=== PATIENT | female | born 1990 | race Caucasian/White ===

== ENCOUNTER → 2017-12-13 17:09 | Outpatient (CLI) | payer OTHER, SELFPAY | PROVIDERS: Family Provider Specialist; PCP Specialist; Visit Provider Specialist | DX: Z34.02 Encounter for supervision of normal first pregnancy, second trimester (principal); Z3A.25 25 weeks gestation of pregnancy ==

== ENCOUNTER → 2017-12-14 15:49 | Outpatient (CLI) | payer OTHER, SELFPAY ==
[2017-12-14 18:13] LABS: Hematocrit 31.7 % (36-46); Hemoglobin 10.5 g/dL (12.0-16.0)
[2017-12-14 19:05] LABS: GTT (PREG) 1 Hour PP 50gm Dose 135 mg/dL (76-139)
== END ==
PROVIDERS: Family Provider Specialist; PCP Specialist; Visit Provider Specialist
DX: Z3A.25 25 weeks gestation of pregnancy (principal); Z34.02 Encounter for supervision of normal first pregnancy, second trimester
CPT/HCPCS: 36415; 82950; 85014; 85018

== ENCOUNTER → 2018-02-19 16:40 | Outpatient (CLI) | payer OTHER, SELFPAY ==
[2018-02-20 11:44] LABS: Strep Grp B PCR POS for Grp B Strep
== END ==
PROVIDERS: Family Provider Specialist; PCP Specialist; Visit Provider Obstetrics & Gynecology
DX: Z34.03 Encounter for supervision of normal first pregnancy, third trimester (principal); Z3A.35 35 weeks gestation of pregnancy
CPT/HCPCS: 87653

== ENCOUNTER → 2018-03-13 18:32 | Outpatient (CLI) | payer OTHER, SELFPAY | END | disposition home or self-care (01) | PROVIDERS: Family Provider Specialist; PCP Specialist | DX: Z34.01 Encounter for supervision of normal first pregnancy, first trimester (principal); Z3A.38 38 weeks gestation of pregnancy | CPT/HCPCS: 59025; 59050; G0378; G0379 ==

== ENCOUNTER 2018-03-18 10:47 | Outpatient (CLI) | payer OTHER, SELFPAY | END 2018-03-18 11:53 | disposition home or self-care (01) | LOC: OB 03-21 16:26 | PROVIDERS: Family Provider Specialist; PCP Specialist | DX: Z34.03 Encounter for supervision of normal first pregnancy, third trimester (principal); Z3A.39 39 weeks gestation of pregnancy | CPT/HCPCS: 59025; G0378; G0379 ==

== ENCOUNTER 2018-03-19 10:48 | Inpatient (IN) | payer OTHER, SELFPAY ==
[2018-03-19] MEDS: LACTATED RINGERS 1,000 ML 100 ML IV ×2 (11:45→17:46)
[2018-03-19] MEDS: PENICILLIN G POTASSIUM 5,000,000 UNIT in DEXTROSE 5% IN WATER 250 ML IV (11:45)
[2018-03-19] MEDS: OXYTOCIN PREMIX 30 UNIT/500 ML PLAST..BAG IV (11:45)
[2018-03-19 12:02] LABS: Hemoglobin 9.9 g/dL (12.0-16.0); Mean Corpuscular Hemoglobin 25.9 PG (26-34); Mean Corpuscular Volume 78.5 fL (80-100); Platelet Count 180 X10^3/uL (150-400); Red Blood Cell Count 3.83 X10^6/uL (4.0-5.2); Red Cell Distribution Width 14.4 % (11.6-14.8); White Blood Cell Count 15.3 X10^3/uL (4.5-11.0)
[2018-03-19 12:08] LABS: Add Manual Diff / Slide Review YES
[2018-03-19 12:32] LABS: Neutrophils Absolute Manual 11934 /uL (3000-5900); Total Cells Counted 100
[2018-03-19 12:34] LABS: Anisocytosis 1+; Microcytosis 1+
--- NOTE | 2018-03-19 12:42 | PM.OBHP.1 ---
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) History of Present care: good care, initiated at week # (8 ), number of visits (13) and pounds weight gain (19) Dating criteria: LMP confirmed by 1st trimester US Ultrasounds: normal mid trimester US Obstetrical complications: none Medical complications: none Preadmission Labs Blood type: B (+) positive -: Antibody screen: negative, GBS status: positive, HBsAG: negative, HIV: negative, HSV 1: positive, HSV 2: negative and RPR/VDLR: negative -: Chlamydia screen: not detected and Gonorrhea screen: not detected -: Rubella: immune and Varicella: immune HCAB: negative PAP: Normal Integrated screen: Negative 1 hr GTT: 135 Evaluation Evaluation Baseline heart rate: 135 Variability: Moderate (11-25) monitor accelerations: Present monitor decelerations: Absent Contraction Frequency (minutes): 0 Cervical dilation (cm): 2 Cervical effacement (%): 90 station: 0 Laboratory results: Laboratory Tests 03/19/18 03/19/18 11:40 11:40 WBC 15.3 H RBC 3.83 L Hgb 9.9 L Hct 30.0 L MCV 78.5 L MCH 25.9 L MCHC 33.0 RDW 14.4 Plt Count 180 Neut % (Auto) Not Reportable Lymph % (Auto) Not Reportable [place] % (Auto) Not Reportable Eos % (Auto) Not Reportable Baso % (Auto) Not Reportable Total Counted 100 Seg Neutrophils % 75.0 H Band Neutrophils % 3.0 Lymphocytes % (Manual) 12.0 L Monocytes % (Manual) 7.0 Metamyelocytes % 1.0 H Myelocytes % 2.0 H Neutrophils # (Manual) 81344 H RBC Morphology Not Reportable Anisocytosis 1+ H Microcytosis 1+ H Blood Type B Positive [facility] Surgical History Surgical procedure planned (Resolved) Anesthesia (Inactive) History of third molar tooth extraction (~2010) Family History Father Age: 63 Hypertension High cholesterol Mother Age: 55 Hypertension Brother Rhabdomyosarcoma of heart Meds Home Medications Medication Instructions Recorded Confirmed Type No Known Home Medications 03/19/18 03/19/18 History Allergies Allergy/AdvReac Type Severity Reaction Status Date / Time No Known Drug Allergies Allergy Verified 03/19/18 11:12 Review of Systems Review of Systems All systems reviewed & are unremarkable except as noted in HPI and below Exam Vital Signs (past 8 hours): Blood pressure 115/76, temperature 36.2? pulse 104 Narrative Exam Narrative: HEENT exam within normal limits. Lungs are clear to auscultation and percussion. No thyromegaly. Heart is regular rate and rhythm no S3-S4 or murmurs. Abdomen is soft, nontender. Gravid uterus is nontender. is vertex. Extremities with trace edema and nontender. Objective Labs Result Diagrams: 03/19/18 11:40 Labs: Laboratory Results - last 24 hr 03/19/18 03/19/18 11:40 11:40 WBC 15.3 H RBC 3.83 L Hgb 9.9 L Hct 30.0 L MCV 78.5 L MCH 25.9 L MCHC 33.0 RDW 14.4 Plt Count 180 Neut % (Auto) Not Reportable Lymph % (Auto) Not Reportable [place] % (Auto) Not Reportable Eos % (Auto) Not Reportable Baso % (Auto) Not Reportable Total Counted 100 Seg Neutrophils % 75.0 H Band Neutrophils % 3.0 Lymphocytes % (Manual) 12.0 L Monocytes % (Manual) 7.0 Metamyelocytes % 1.0 H Myelocytes % 2.0 H Neutrophils # (Manual) 26415 H RBC Morphology Not Reportable Anisocytosis 1+ H Microcytosis 1+ H Blood Type B Positive Assessment and Plan (1) 39 weeks gestation of : Current visit: Yes Status: Acute Plan: Plan: Patient will begin on IV Pitocin. She will receive penicillin IV for positive group B strep culture. Epidural if patient desires. Plan is for routine vaginal delivery.
--- NOTE | 2018-03-19 12:55 | P.HPOB_ITS ---
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) History of Present care: good care, initiated at week # (8 ), number of visits (13) and pounds weight gain (19) Dating criteria: LMP confirmed by 1st trimester US Ultrasounds: normal mid trimester US Obstetrical complications: none Medical complications: none Preadmission Labs Blood type: B (+) positive -: Antibody screen: negative, GBS status: positive, HBsAG: negative, HIV: negative, HSV 1: positive, HSV 2: negative and RPR/VDLR: negative -: Chlamydia screen: not detected and Gonorrhea screen: not detected -: Rubella: immune and Varicella: immune HCAB: negative PAP: Normal Integrated screen: Negative 1 hr GTT: 135 Evaluation Evaluation Baseline heart rate: 135 Variability: Moderate (11-25) monitor accelerations: Present monitor decelerations: Absent Contraction Frequency (minutes): 0 Cervical dilation (cm): 2 Cervical effacement (%): 90 station: 0 Laboratory results: Laboratory Tests 03/19/18 03/19/18 11:40 11:40 WBC 15.3 H RBC 3.83 L Hgb 9.9 L Hct 30.0 L MCV 78.5 L MCH 25.9 L MCHC 33.0 RDW 14.4 Plt Count 180 Neut % (Auto) Not Reportable Lymph % (Auto) Not Reportable [place] % (Auto) Not Reportable Eos % (Auto) Not Reportable Baso % (Auto) Not Reportable Total Counted 100 Seg Neutrophils % 75.0 H Band Neutrophils % 3.0 Lymphocytes % (Manual) 12.0 L Monocytes % (Manual) 7.0 Metamyelocytes % 1.0 H Myelocytes % 2.0 H Neutrophils # (Manual) 80918 H RBC Morphology Not Reportable Anisocytosis 1+ H Microcytosis 1+ H Blood Type B Positive [facility] Surgical History Surgical procedure planned (Resolved) Anesthesia (Inactive) History of third molar tooth extraction (~2010) Family History Father Age: 63 Hypertension High cholesterol Mother Age: 55 Hypertension Brother Rhabdomyosarcoma of heart Meds Home Medications Medication Instructions Recorded Confirmed Type No Known Home Medications 03/19/18 03/19/18 History Allergies Allergy/AdvReac Type Severity Reaction Status Date / Time No Known Drug Allergies Allergy Verified 03/19/18 11:12 Review of Systems Review of Systems All systems reviewed & are unremarkable except as noted in HPI and below Exam Vital Signs (past 8 hours): Blood pressure 115/76, temperature 36.2? pulse 104 Narrative Exam Narrative: HEENT exam within normal limits. Lungs are clear to auscultation and percussion. No thyromegaly. Heart is regular rate and rhythm no S3-S4 or murmurs. Abdomen is soft, nontender. Gravid uterus is nontender. is vertex. Extremities with trace edema and nontender. Objective Labs Result Diagrams: 03/19/18 11:40 Labs: Laboratory Results - last 24 hr 03/19/18 03/19/18 11:40 11:40 WBC 15.3 H RBC 3.83 L Hgb 9.9 L Hct 30.0 L MCV 78.5 L MCH 25.9 L MCHC 33.0 RDW 14.4 Plt Count 180 Neut % (Auto) Not Reportable Lymph % (Auto) Not Reportable [place] % (Auto) Not Reportable Eos % (Auto) Not Reportable Baso % (Auto) Not Reportable Total Counted 100 Seg Neutrophils % 75.0 H Band Neutrophils % 3.0 Lymphocytes % (Manual) 12.0 L Monocytes % (Manual) 7.0 Metamyelocytes % 1.0 H Myelocytes % 2.0 H Neutrophils # (Manual) 05312 H RBC Morphology Not Reportable Anisocytosis 1+ H Microcytosis 1+ H Blood Type B Positive Assessment and Plan (1) 39 weeks gestation of : Current visit: Yes Status: Acute Plan: Plan: Patient will begin on IV Pitocin. She will receive penicillin IV for positive group B strep culture. Epidural if patient desires. Plan is for routine vaginal delivery.
[2018-03-19 14:08] VITALS: BP 115/76
[2018-03-19] MEDS: PENICILLIN G POTASSIUM 3,000,000 UNIT/50 ML FROZ.PIGGY 100 UNIT IV ×2 (15:33→19:30)
[2018-03-19] MEDS: fentaNYL 100 MCG/2 ML INJ IV ×2 (16:52→17:18)
--- NOTE | 2018-03-19 22:36 | PM.OBPRVD ---
Delivery date: 03/19/18 Intrapartal events: None Induction method: per pitocin protocol Delivery monitor: external FHT and external uterine Route of delivery: Laceration description: Perineal - 2nd Degree Delivery repair: chromic Estimated blood loss (mL): 200 Anesthesia type: Epidural Narrative: Patient arrived on Labor and delivery for Pitocin induction for social reasons. She was started on IV penicillin for positive group B strep culture. The patient received an epidural catheter for pain control. heart tones category 1 to category 2 throughout labor. Patient delivered spontaneously, over an intact perineum. The viable male infant was placed on maternal abdomen. After cord stopped pulsating the cord was clamped cut and cord bloods obtained. The placenta delivered spontaneously, intact, with 3 vessels. There were no cervical tears a second-degree perineal tear was repaired with 3 0 chromic suture in the usual 2 layer fashion. Both infant and mother doing well. Counts of instruments and sponges were correct baby's Apgars were 99, weight 7 lb 11.8 oz, 3512 g [place] Baby 1: Infant gender: Male Presentation: vertex position: Right Occiput Anterior Placenta delivery description: Spontaneous cord vessel description: 3 Vessels Plan for aftercare: Routine care
[2018-03-20] MEDS: DERMOPLAST SPRAY 20% 60 ML 1 SPRAY TOP (01:18)
[2018-03-20] MEDS: LANOLIN OINT 7 GM 1 APPLIC TOP (01:19)
[2018-03-20] MEDS: IBUPROFEN 600 MG TABLET PO ×3 (03:29→16:39)
[2018-03-20] MEDS: OXYCODONE/ACETAMINOPHEN 5/325 TABLET 2 TAB PO ×3 (03:32→13:45)
[2018-03-20] MEDS: DOCUSATE 250 MG CAPSULE PO (09:31)
[2018-03-20] MEDS: FERROUS GLUCONATE 324 MG TABLET PO (10:33)
[2018-03-20 11:51] LABS: Add Manual Diff / Slide Review NO; Basophils Percent Auto 0.2 % (0-2); Eosinophils Percent Auto 0.3 % (2-4); Hematocrit 30.8 % (36-46); Hemoglobin 9.9 g/dL (12.0-16.0); Lymphocytes Percent Auto 9.9 % (25-40); Mean Corpuscular HGB Conc 32.2 % (30-36); Mean Corpuscular Hemoglobin 25.6 PG (26-34); Mean Corpuscular Volume 79.6 fL (80-100); Monocytes Percent Auto 6.1 % (3-14); Neutrophils Absolute Auto 14700 /uL (3000-5900); Neutrophils Percent Auto 83.5 % (50-75); Platelet Count 167 X10^3/uL (150-400); Red Blood Cell Count 3.86 X10^6/uL (4.0-5.2); Red Cell Distribution Width 14.6 % (11.6-14.8); White Blood Cell Count 17.6 X10^3/uL (4.5-11.0)
--- NOTE | 2018-03-20 17:40 | PM.OBPN.1 ---
Subjective - OB Interval history: Patient complains of tailbone pain. She had a couple episodes of nausea with small amount emesis recently. She denies any headaches, scotomata, epigastric pain. She has not been ambulatory much. She feels breast-feeding is going pretty well. Her lochia is doing well. baby status: doing well [place] feeding status: exclusively breast feeding Date Patient Seen: 03/20/18 Time Patient Seen: 17:43 Exam Vital Signs (past 8 hours): Blood pressure is 105/54, pulse of 81, temperature 36.2? Narrative Exam Narrative: Abdomen is soft, nontender. Uterus is firm, at U, nontender. Extremities with trace edema and nontender. Objective Labs Result Diagrams: 03/20/18 11:10 Labs: Laboratory Results - last 24 hr 03/20/18 11:10 WBC 17.6 H RBC 3.86 L Hgb 9.9 L Hct 30.8 L MCV 79.6 L MCH 25.6 L MCHC 32.2 RDW 14.6 Plt Count 167 Neut % (Auto) 83.5 H Lymph % (Auto) 9.9 L [place] % (Auto) 6.1 Eos % (Auto) 0.3 L Baso % (Auto) 0.2 Neut # (Auto) 46289 H Assessment & Plan (1) 39 weeks gestation of : Status: Acute Current Visit: Yes (2) Vaginal delivery: Status: Acute Current Visit: Yes Plan plan OB: routine care Time Spent With Patient Total time spent is greater than 50% in coordination of care (as documented) at patient's floor/unit and/or counseling patient: less than 15 minutes
[2018-03-21] MEDS: OXYCODONE/ACETAMINOPHEN 5/325 TABLET 2 TAB PO (02:20)
[2018-03-21] MEDS: IBUPROFEN 600 MG TABLET PO (09:08)
[2018-03-21] MEDS: DOCUSATE 250 MG CAPSULE PO (09:09)
--- NOTE | 2018-03-21 09:39 | P.DS_ITS ---
Discharge Providers Date of admission: 03/19/18 10:48 Primary care physician: Mago Nieves MD Consults: 03/20/18 08:23 Consult to Distribution Clerk Routine Comment: 03/21/18 05:28 Consult to Asset Protection Associate Routine Comment: Family Concerns due to Spouse's medical issues. Discharge provider: Mago Nieves MD Discharge Date: 03/21/18 Summary Date Patient Seen: 03/21/18 Time Patient Seen: 09:38 Hospital Course: Patient was admitted for induction for social reasons. She received IV antibiotics for group B strep positive. She received an epidural catheter. She had a spontaneous vaginal delivery with repair of a secondary tear. Both she and the infant did well . Patient was ambulatory, tolerating regular diet with no signs or symptoms of preeclampsia. Patient's blood pressure 114/74, temperature 36.2?, pulse of 98 Patient's abdomen is soft, nontender. Uterus is firm, at U, nontender. Repair is intact. Extremities without edema and nontender. Peripartum Data Delivery Method: Natural Vaginal Laceration description: Perineal - 2nd Degree Procedures: Pitocin induction, IV antibiotics for positive group B strep culture , epidural catheter, spontaneous vaginal delivery, repair of second-degree laceration. complications: none Discharge Diagnosis (1) 39 weeks gestation of : Status: Acute (2) Vaginal delivery: Status: Acute Status at Discharge Functional status at discharge: independent ambulation Overall status at discharge: patient is progressing back to baseline Time Spent with Patient Total time spent providing and/or coordinating discharge services: Less than 30 minutes Objective Labs Result Diagrams: 03/20/18 11:10 Labs: Laboratory Results - last 24 hr 03/20/18 11:10 WBC 17.6 H RBC 3.86 L Hgb 9.9 L Hct 30.8 L MCV 79.6 L MCH 25.6 L MCHC 32.2 RDW 14.6 Plt Count 167 Neut % (Auto) 83.5 H Lymph % (Auto) 9.[address] [place] % (Auto) 6.1 Eos % (Auto) 0.3 L Baso % (Auto) 0.2 Neut # (Auto) 17187 H Discharge Plan Discharge Plan Patient Disposition: Home Discharge Med Rec/Prescriptions Prescriptions: New oxycodone-acetaminophen 5-325 mg Tablet 2 tab PO Q4HR PRN (Reason: Pain, Severe (7-10)) Qty: 20 RF: 0 ibuprofen 600 mg Tablet 600 mg PO Q6HR PRN (Reason: Pain, Mild (1-3)) Qty: 30 RF: 0 docusate sodium 250 mg Capsule 250 mg PO DAILY Qty: 20 RF: 0 ferrous gluconate 324 mg (38 mg iron) Tablet 324 mg PO DAILY Qty: 30 RF: 0 oxycodone-acetaminophen 5-325 mg Tablet 2 tab PO Q4HR PRN (Reason: Pain, Severe (7-10)) Qty: 20 RF: 0 No Action docusate sodium [Dulcolax Stool Softener (dss)] 100 mg capsule 100 mg PO DAILY Qty: 20 RF: 0 ibuprofen 600 mg tablet 600 mg PO QID PRN (Reason: pain) Qty: 30 RF: 0 Follow up/Referrals: Mago Nieves MD [Primary Care Provider] - 1 Month Provider Discharge Instructions Diet: Regular Activity: Nothing in vagina for 4 weeks. Skin/Wound/Dressing Care Report to your healthcare provider any signs of infection, such as:: chills, fever, increased pain and unusual drainage Discharge Data Primary Care Provider: Mago Nieves Attending Provider: Mago Nieves Admit Date/Time: 03/19/18 10:48
[2018-03-21 11:47] VITALS: BP 120/81; PULSE 72; RESP 16; TEMP 36.2
--- NOTE | 2018-03-22 13:27 | CM.SWNOTE ---
Social Work Consult Note: This PIPE THREADER was requested to see mom Julia 03.21.18 before she went home w/ baby aura Dias. Dad Jeremy joined for this PIPE THREADER's visit. Baby boy healthy, mom delivered vaginally MondayMarch 19. Reason for Consult: Mom is 27 yo, works line fixer as a [employer]. Dad is 10 years older and has advanced ALS, w/c bound and physically declining quickly, Dad able to walk with a cane 9 months ago. Dad requires full care from his and cgs now. First time parents. Had lengthy conversation w/Julia and Jeremy. Baby aura Dias breast feeding well during our visit then slept well the entirety of our visit. Reviewed the logistics of Jeremy getting the care he needs and baby Arun getting the care he required. Julia does not qualify for home visits by Maternity Support Services, a service she would likely benefit from. Discussed the maternity support group here at [facility], Julia hesitates and states this may not be helpful, FB mom groups have proven not to be helpful. Julia does not have a mom group, strongly encouraged both Julia and Jeremy to get connected with other first time parents. Jeremy has CHIRAG; he has a cg, Sirisha, for daytime hours M-. Julia's mom is another CHIRAG cg. Julia provides the weekend and night time caregiving for her . He can not sit up on his own, he can speak (with difficulty) and can bring one hand to his face (with effort). Jeremy has recently been re-evaluated by CHIRAG Kingsley and his hours have increased to give him more support at night. Jeremy's sister Elena is in town for a few weeks to assist Jeremy at night as well, although Julia and Jeremy spend some time reviewing the strained relationship that Jeremy and Elena have which in part led to Jeremy's suicidal ideation last night. Re: events of Monday night; Jeremy explains Suicidal Ideation tends to be a normal part of the ALS disease progression. For him, he has struggled w/thoughts of suicide since losing his independence this year and he does not have the outlets he used prior to relieve his stress/depression/anxiety i.e. riding his motorcycle or going for a run. Jeremy felt pushed to the limit this week after the of his son brought extreme jenny and extreme pain and grief in reviewing his disease process; not being able to be alone with his baby d/t safety, not seeing his baby grow up, not being able to hold or talk to his baby. Among many mental struggles there is a constant feeling of being a burden to his loved ones. Jeremy has been seeing Gur[facility] counselor, regularly for home visits and feels this is very helpful to process these complicated feelings and thoughts related to this disease process. Jeremy understands he and his have continued challenges ahead but also look forward to being parents. Discussed Jeremy's advanced directives (?) and both parents indicated Jeremy had updated his POLST and living will. Julia explained Jeremy was very practical and this PIPE THREADER commended Jeremy letting him know clarification on advanced directives would be a great gift to his . Julia and Jeremy are the most concerned about childcare for jennifer Dias when Julia goes back to work. Jeremy can not be alone with his baby and states it would be torture to have his baby away from him while Julia is at work. Both overwhelmed by the cost of having a nanny in the home. This topic was not further discussed during our visit as we focused on the safety of Jeremy and Baby Arun in the next weeks- months. Overall Julia and Jeremy were able to open up to this PIPE THREADER about the challenges they have faced and will continue to face as new parents and as Gms disease progresses. This PIPE THREADER felt they were safe to return home w/their baby and provide the best care they knew how; although there are still many concerns re: availability of caregivers, availability of family to assist, and lack of insight as new parents re: the demands of having a at home. Relayed this to Director Gabrielle and RN Guerline. This PIPE THREADER left and upon return mom and dad had left w/baby, Dad's cg, and likely maternal grandma, follow up scheduled for mom on Monday.. Placed call to CHIRAG Kingsley who explained she will be at Jeremy's home this Monday morning to again re-evaluate for increased hours. Unfortunately even if there is increased hours, Mariah explains, they may not be able to secure a night time cg if [facility] does not have one available (they have not secured one yet and Mariah working on this). Asked if this PIPE THREADER could be of any further assist, Mariah indicated nothing more needed at this time. Ela Knox, PIPE THREADER
== END 2018-03-21 13:30 | disposition home or self-care (01) | DRG 775 ==
PROVIDERS: Admitting Provider Specialist; Family Provider Specialist; PCP Specialist; Visit Provider Specialist
DX: O99.824 Streptococcus B carrier state complicating childbirth (principal); Z3A.39 39 weeks gestation of pregnancy; Z37.0 Single live birth; O70.1 Second degree perineal laceration during delivery; R11.2 Nausea with vomiting, unspecified
CPT/HCPCS: 01967; 36415; 59050; 59400; 85025; 86850; 86900; 86901; G0379; J2540; J2590; J3010

== ENCOUNTER → 2018-09-12 17:31 | Outpatient (CLI) | payer OTHER, SELFPAY ==
[2018-09-14 16:10] LABS: Progesterone < 0.5 ng/mL
== END ==
PROVIDERS: Family Provider Family Medicine; PCP Family Medicine; Visit Provider Specialist
DX: N97.0 Female infertility associated with anovulation (principal)
CPT/HCPCS: 36415; 84144

== ENCOUNTER → 2018-10-23 17:38 | Outpatient (CLI) | payer OTHER, SELFPAY ==
[2018-10-26 08:39] LABS: Progesterone < 0.5 ng/mL
== END ==
PROVIDERS: PCP Family Medicine; Visit Provider Specialist
DX: N97.0 Female infertility associated with anovulation (principal)
CPT/HCPCS: 36415; 84144

== ENCOUNTER → 2019-03-05 07:42 | Outpatient (CLI) | payer OTHER, SELFPAY ==
[2019-03-05 11:11] LABS: Estradiol, Total 8324.8 pg/mL
== END ==
PROVIDERS: PCP Family Medicine; Visit Provider Obstetrics & Gynecology Reproductive Endocrinology
DX: Z31.81 Encounter for male factor infertility in female patient (principal)
CPT/HCPCS: 36415; 82670; 83002; 84144

== ENCOUNTER → 2019-03-20 08:15 | Outpatient (CLI) | payer OTHER, SELFPAY ==
[2019-03-20 09:28] LABS: HCG Quantitative /Beta subunit < 2.39 mIU/mL
[2019-03-20 09:29] LABS: Progesterone, Total 4.87 ng/mL
[2019-03-20 09:45] LABS: Estradiol, Total 21.2 pg/mL
== END ==
PROVIDERS: PCP Family Medicine; Visit Provider Obstetrics & Gynecology Reproductive Endocrinology
DX: N92.6 Irregular menstruation, unspecified (principal)
CPT/HCPCS: 36415; 82670; 84144; 84702

== ENCOUNTER → 2019-04-26 08:09 | Outpatient (CLI) | payer OTHER, SELFPAY ==
[2019-04-26 10:08] LABS: Estradiol, Total 159.8 pg/mL
== END ==
PROVIDERS: Family Provider Family Medicine; PCP Family Medicine; Visit Provider Obstetrics & Gynecology Reproductive Endocrinology
DX: Z31.81 Encounter for male factor infertility in female patient (principal)
CPT/HCPCS: 36415; 82670

== ENCOUNTER → 2019-05-06 08:08 | Outpatient (CLI) | payer OTHER, SELFPAY | PROVIDERS: PCP Family Medicine; Visit Provider Obstetrics & Gynecology Reproductive Endocrinology | DX: Z31.81 Encounter for male factor infertility in female patient (principal) | CPT/HCPCS: 36415; 84144 ==

== ENCOUNTER → 2020-06-22 08:37 | Outpatient (CLI) | payer OTHER, SELFPAY ==
[2020-06-22 10:56] LABS: HCG Quantitative /Beta subunit 612.4 mIU/mL
== END ==
PROVIDERS: PCP Family Medicine; Referring Provider Registered Nurse; Visit Provider Registered Nurse
DX: O09.00 Supervision of pregnancy with history of infertility, unspecified trimester (principal)
CPT/HCPCS: 36415; 84702

== ENCOUNTER → 2020-06-24 08:50 | Outpatient (CLI) | payer OTHER, SELFPAY ==
[2020-06-24 09:51] LABS: HCG Quantitative /Beta subunit 1696.9 mIU/mL
== END ==
PROVIDERS: PCP Family Medicine; Referring Provider Registered Nurse; Visit Provider Registered Nurse
DX: N97.9 Female infertility, unspecified (principal)
CPT/HCPCS: 36415; 84702

== ENCOUNTER → 2020-09-08 11:40 | Outpatient (CLI) | payer OTHER, SELFPAY ==
[2020-09-08 12:04] LABS: Add Manual Diff / Slide Review NO; Basophils Absolute Auto 100 /uL (0-100); Basophils Percent Auto 0.5 % (0-2); Eosinophils Absolute Auto 100 /uL (0-450); Eosinophils Percent Auto 0.6 % (2-4); Hematocrit 36.2 % (36-46); Hemoglobin 12.2 g/dL (12.0-16.0); Lymphocytes Absolute Auto 1300 /uL (1100-4500); Lymphocytes Percent Auto 11.6 % (25-40); Mean Corpuscular HGB Conc 33.8 % (30-36); Mean Corpuscular Hemoglobin 30.3 PG (26-34); Mean Corpuscular Volume 89.8 fL (80-100); Monocytes Absolute Auto 500 /uL (0-900); Monocytes Percent Auto 4.7 % (3-14); Neutrophils Absolute Auto 9000 /uL (1500-7000); Neutrophils Percent Auto 82.6 % (50-75); Platelet Count 193 X10^3/uL (150-400); Red Blood Cell Count 4.03 X10^6/uL (4.0-5.2); Red Cell Distribution Width 13.3 % (11.6-14.8); White Blood Cell Count 10.9 X10^3/uL (4.5-11.0)
[2020-09-08 12:46] LABS: Appearance Urine UA CLEAR; Bilirubin Urine UA NEGATIVE (NEGATIVE); Color Urine UA YELLOW; Glucose Urine UA NEGATIVE (Negative); Ketones Urine UA NEGATIVE (NEGATIVE); Leukocyte Esterase Urine UA TRACE (NEGATIVE); Nitrite Urine UA NEGATIVE (Negative); Occult Blood Urine UA NEGATIVE (Negative); Protein Urine UA NEGATIVE (Negative); Urobilinogen Urine UA 0.2 E.U./dL (0.2)
[2020-09-08 12:47] LABS: pH Urine UA 7.5 (4.5-8.0)
[2020-09-08 12:48] LABS: Bacteria Urine None Seen
[2020-09-08 13:03] LABS: Amorphous Sediment Urine 3+; Culture Indicated Urine Cult Not Indicated; RBC Urine 0-1/HPF (0-5/HPF); Squamous Epithelial Cell Urine 1-5 /HPF (0-5/HPF); Urine Comments CX ALREADY ORDERED; WBC Urine 1-5/HPF (0-5/HPF)
[2020-09-08 16:12] LABS: Hepatitis B Surface Antigen NEGATIVE s/c (NEGATIVE)
[2020-09-08 16:33] LABS: HIV 1 & 2 Ab/Ag 4th Gen Combo NEGATIVE (NEGATIVE); Hep C Virus Ab w/Reflex Quant NEGATIVE s/c (NEGATIVE)
[2020-09-09 07:36] LABS: RPR Screen Non Reactive (Non Reactive)
[2020-09-09 10:36] LABS: Varicella IgG Antibody 2664 index (Immune >165)
== END ==
PROVIDERS: PCP Family Medicine; Referring Provider Family Medicine; Visit Provider Family Medicine
DX: Z34.81 Encounter for supervision of other normal pregnancy, first trimester (principal)
CPT/HCPCS: 36415; 80055; 81003; 81015; 86787; 86803; 86850; 86900; 86901; 87086; 87389

== ENCOUNTER → 2020-10-12 11:32 | Outpatient (CLI) | payer OTHER, SELFPAY | PROVIDERS: PCP Family Medicine; Referring Provider Family Medicine; Visit Provider Family Medicine | DX: Z34.90 Encounter for supervision of normal pregnancy, unspecified, unspecified trimester (principal); Z53.20 Procedure and treatment not carried out because of patient's decision for unspecified reasons ==

== ENCOUNTER → 2020-10-13 11:54 | Outpatient (CLI) | payer OTHER, SELFPAY ==
--- NOTE | 2020-10-13 | DI.US.S_ITS ---
PROCEDURE: US OB >= 14 WEEKS FETUS INDICATIONS: ANATOMY SCAN OUTSIDE/PRIOR DATING DATA: Last menstrual period (LMP): 05/13/20 . LMP-based estimated date of delivery (HERB): 02/17/21 . First dating scan (date and location): 10/13/20 . Estimated date of delivery (HERB) from first dating scan: 02/23/21 . TECHNIQUE: Real-time scanning was performed of the fetus, with image documentation and biometric measurements. Endovaginal scanning: Not needed COMPARISON: [facility], , OB >= 14 WEEKS FETUS, 03/07/2018, 15:11. [facility], , OB >= 14 WEEKS FETUS, 02/15/2018, 16:21. FINDINGS: General: A single living intrauterine gestation is present. Presentation: Breech. Placenta: Placental position is posterior , without previa. Amniotic fluid index: 11.0 cm, normal range is 5-24 cm. heart rate: 169 beats per minute. Maternal cervical canal: 3.1 cm long. Normal lower limit is 2.5 cm. biometrics: Biparietal diameter: 4.6 cm, 19 weeks 6 days Head circumference: 18.6 cm, 21 weeks 0 days Abdominal circumference: 17.6 cm, 22 weeks 3 days Femur length: 3.4 cm, 20 weeks 6 days Estimated gestational age from initial scan: not applicable. Composite gestational age from present scan: 21 weeks 0 days Estimated weight and percentile: 435 g, 30th percentile Measurement variability for biometric dating: +/- 7 days from 14 weeks to 15 weeks 6 days gestation, +/- 10 days from 16 weeks to 21 weeks 6 days gestation, +/- 2 weeks from 22 weeks to 27 weeks 6 days gestation, +/- 3 weeks for 28 weeks gestation or later. weight reference: 4500 g or EFW >90/95% is considered macrosomia or large for gestational age. EFW <10% is small for gestational age. EFW 5% or less is considered intra-uterine growth restriction. Anatomic survey: Neuro: Ventricles are non-dilated at less than 10 mm. Cisterna magna is normal at 3-11 mm. Cerebellum is normal in size and morphology. Nuchal skin fold: Normal at less than 6 mm between 14-21 weeks gestational age. Face: Nose and lips, facial profile are normal. Spine: No evidence for spina bifida. Heart: 4-chambered heart is present, with normal ventricular outflow tracts. Diaphragm: Diaphragm is intact. Stomach: Left-sided stomach is present. Kidneys: No hydronephrosis. Normal is less than 5 mm in 2nd trimester, less than 7 mm in 3rd trimester. Cord: 3-vessel cord has orthotopic insertion. Bladder: Normal in size. Extremities: All 4 extremities identified. IMPRESSION: Appropriate interval growth, normal survey of anatomy, the delivery date is projected to be centered on 02/23/21. Dictated by: Osvaldo Stone M.D. on 10/13/2020 at 13:51 Approved by: Osvaldo Stone M.D. on 10/13/2020 at 13:54
== END ==
PROVIDERS: PCP Family Medicine; Referring Provider Family Medicine; Visit Provider Family Medicine
DX: Z36.89 Encounter for other specified antenatal screening (principal); Z3A.21 21 weeks gestation of pregnancy
CPT/HCPCS: 76811

== ENCOUNTER → 2020-12-07 09:26 | Outpatient (CLI) | payer OTHER, SELFPAY ==
[2020-12-07 11:06] LABS: Add Manual Diff / Slide Review NO; Basophils Absolute Auto 0 /uL (0-100); Basophils Percent Auto 0.3 % (0-2); Eosinophils Absolute Auto 100 /uL (0-450); Eosinophils Percent Auto 0.5 % (2-4); Hematocrit 32.1 % (36-46); Hemoglobin 10.7 g/dL (12.0-16.0); Lymphocytes Absolute Auto 1300 /uL (1100-4500); Lymphocytes Percent Auto 10.8 % (25-40); Mean Corpuscular HGB Conc 33.3 % (30-36); Mean Corpuscular Hemoglobin 29.3 PG (26-34); Monocytes Absolute Auto 800 /uL (0-900); Monocytes Percent Auto 6.7 % (3-14); Neutrophils Absolute Auto 9600 /uL (1500-7000); Neutrophils Percent Auto 81.7 % (50-75); Platelet Count 155 X10^3/uL (150-400); Red Blood Cell Count 3.65 X10^6/uL (4.0-5.2); Red Cell Distribution Width 12.4 % (11.6-14.8); White Blood Cell Count 11.7 X10^3/uL (4.5-11.0)
[2020-12-07 11:25] LABS: GTT (PREG) 1 Hour PP 50gm Dose 106 mg/dL (76-139)
== END ==
PROVIDERS: PCP Family Medicine; Referring Provider Family Medicine; Visit Provider Family Medicine
DX: Z34.90 Encounter for supervision of normal pregnancy, unspecified, unspecified trimester (principal)
CPT/HCPCS: 36415; 82950; 85025

== ENCOUNTER 2021-01-30 20:15 | Observation (INO) | payer OTHER, SELFPAY ==
--- NOTE | 2021-01-30 21:01 | PM.OBTRLD ---
Visit Information Visit Information Date of evaluation: 01/31/21 Primary OB Provider: Lynsey Wade Reason for Evaluation: Yes rule out labor Comments/Additional reasons for admission: 30yo at 36w1d here due to contractions. Pt reports having contractions starting earlier in the day. She denies any vaginal bleeding or LOF. She has been feeling her baby move regularly. The pt reports that she has not been sleeping well recently. She continues to transfer her for his care multiple times/day. Her appetite has been very low, and she is often skipping meals. She has not been adequately hydrating either. [facility] Medical History (Updated 01/31/21 @ 12:17 by Lynsey Wade MD) 39 weeks gestation of depression Skin rash Vaginal delivery Surgical History (Updated 08/07/20 @ 11:24 by Raquel Pinto RN) Anesthesia History of third molar tooth extraction (~2010) Surgical procedure planned Family History (Updated 08/07/20 @ 11:31 by Raquel Pinto RN) Father Age: 66 Hypertension High cholesterol Mother Age: 58 Hypertension Cancer of kidney Fibromyalgia Brother Rhabdomyosarcoma of heart Grandmother Family history unknown Grandfather Family history unknown Grandmother Family history unknown Grandfather Myocardial infarction Social History marital status: number of children: 1 household members: spouse and children lives independently: Yes caregiver/support person: No housing: house pets and animals: No education level: college occupational status: employed current occupational exposures/hazards: No special vanessa needs: No seatbelt use: always do you feel safe at home: Yes Smoking Status: Never smoker second hand exposure: No alcohol intake: former substance use type: does not use during the past year weight has: remained stable well-balanced diet: about half the time daily servings fruits/ve-4 caffeine: Yes Type(s) of exercise: walking and normal ROM and activity frequency: 1-2 times per week Evaluation Evaluation Baseline heart rate: 125 Variability: Moderate (11-25) monitor accelerations: Present Monitor Decelerations: Absent Category of Tracing: Reactive Cervical dilation (cm): 0 Cervical effacement (%): 0 station: -4 Diagnosis, Plan/Disposition Final Diagnosis (1) False labor: Status: Acute (2) 36 weeks gestation of : Status: Acute Plan/Disposition Plan: 30yo at 36w1d here with contractions that tapered off. No evidence of active labor. Pt was noted to be quite dehydrated with collapsed veins at presentation. She received 1L bolus followed by mIVF through the night. She received morphine and Ambien to allow for sleep overnight. Pt currently under a lot of emotional and physical stress at home, caring for her with ALS. Discussed the importance of regular PO intake and fluids. Suspect pt has strained her back - discussed home exercises/stretching, heat, Tylenol. Pt will d/c home today. OB Disposition: home
[2021-01-30 21:02] LABS: Bacteria Urine None Seen; RBC Urine None Seen (0-5/HPF)
[2021-01-30 21:04] LABS: Appearance Urine UA CLEAR; Bilirubin Urine UA NEGATIVE (NEGATIVE); Color Urine UA YELLOW; Glucose Urine UA TRACE g/dL (Negative); Ketones Urine UA 2+ (NEGATIVE); Leukocyte Esterase Urine UA NEGATIVE (NEGATIVE); Nitrite Urine UA NEGATIVE (Negative); Occult Blood Urine UA NEGATIVE (Negative); Protein Urine UA 1+ (Negative); Specific Gravity Urine UA 1.025 (1.000-1.035); Urobilinogen Urine UA 0.2 E.U./dL (0.2)
[2021-01-30] MEDS: NIFEdipine 10 MG CAPSULE PO ×4 (21:11→22:51)
[2021-01-30 21:22] LABS: pH Urine UA 5.5 (4.5-8.0)
[2021-01-30 21:42] LABS: Culture Indicated Urine Cult Not Indicated; Mucus Urine 1+ (Negative); Squamous Epithelial Cell Urine 0-1 /HPF (0-5/HPF); WBC Urine 1-5/HPF (0-5/HPF)
[2021-01-30] MEDS: LACTATED RINGERS 1,000 ML 1000 ML IV (23:30)
[2021-01-30] MEDS: MORPHINE 2 MG/ML INJ IV (23:50)
[2021-01-31] MEDS: ZOLPIDEM 5 MG TABLET PO (00:07)
[2021-01-31] MEDS: LACTATED RINGERS 1,000 ML 125 ML IV (00:35)
[2021-01-31] MEDS: ACETAMINOPHEN 325 MG TABLET 650 MG PO (08:49)
== END 2021-01-31 09:45 | disposition home or self-care (01) ==
PROVIDERS: Admitting Provider Family Medicine; PCP Family Medicine; Visit Provider Family Medicine
DX: O47.03 False labor before 37 completed weeks of gestation, third trimester (principal); O26.893 Other specified pregnancy related conditions, third trimester; E86.0 Dehydration; Z3A.36 36 weeks gestation of pregnancy
CPT/HCPCS: 59025; 59050; 81001; 96360; 96372; G0378; G0379; J2270

== ENCOUNTER → 2021-02-10 10:07 | Outpatient (CLI) | payer OTHER, SELFPAY ==
[2021-02-11 08:04] LABS: Strep Grp B PCR NEG for Grp B Strep
== END ==
PROVIDERS: PCP Family Medicine; Visit Provider Family Medicine
DX: Z34.90 Encounter for supervision of normal pregnancy, unspecified, unspecified trimester (principal); Z3A.38 38 weeks gestation of pregnancy
CPT/HCPCS: 87653

== ENCOUNTER 2021-02-17 21:50 | Observation (INO) | payer OTHER, SELFPAY | END 2021-02-18 | disposition home or self-care (01) | PROVIDERS: Admitting Provider Family Medicine; PCP Family Medicine; Referring Provider Family Medicine; Visit Provider Family Medicine | DX: O42.92 Full-term premature rupture of membranes, unspecified as to length of time between rupture and onset of labor (principal); Z3A.39 39 weeks gestation of pregnancy | CPT/HCPCS: 01967; 59025; G0378; G0379 ==

== ENCOUNTER 2021-02-21 06:28 | Inpatient (IN) | payer OTHER, SELFPAY ==
--- NOTE | 2021-02-21 08:07 | P.HPOB_ITS ---
OB HPI Date/Time Date of admission: 02/21/21 Date Patient Seen: 02/21/21 Time Patient Seen: 08:15 History of Present Condition Chief complaint: rupture of membranes : 3 Para: 1 Estimated Date of Delivery: 02/27/21 Estimated Gestational Age (weeks): 39w1d Narrative: Julia Mireles is a 30 year old 39 weeks 1 day gestation. At 5:45 a.m. this morning she felt wet and noted a large amount of clear fluid. She had some contractions yesterday but not much today. Denies bleeding and reports good movement. Leaking continues. She received care with Dr. Wade. complicated by the loss of her on 02/05/21 from ALS. She is taking sertraline and is in counseling. She has good family support. was the product of an embryo transfer at the [facility] given her 's health. History of Present care: good care, initiated at week # (11), number of visits (10) and pounds weight gain (5) Dating criteria: based on 1st trimester US only Ultrasounds: normal mid trimester US Obstetrical complications: none Medical complications: none Preadmission Labs Blood type: B (+) positive -: Antibody screen: negative, GBS status: negative, HBsAG: negative, HIV: negative and RPR/VDLR: negative -: Rubella: immune and Varicella: immune HCT: 29.9 HCAB: negative Urine: Negative 1 hr GTT: 106 Prior (ies) History: 03/19/18 at 39 weeks, 8 hr labor, epidural, 7 lb 11.8 oz male, [facility] with Dr. Nieves, did not breast feed 07/03/19 SAB at 5 weeks Evaluation Evaluation Baseline heart rate: 140 Variability: Moderate (11-25) monitor accelerations: Present Monitor Decelerations: Absent Contraction Frequency (minutes): 8 Uterine Contraction Intensity: Mild Category of Tracing: Reactive Status: Category l Cervical dilation (cm): 4 Cervical effacement (%): 75 station: -2 Non-invasive Membranes Rupture Test: positive [facility] Medical History 39 weeks gestation of depression Skin rash Vaginal delivery Surgical History Anesthesia History of third molar tooth extraction (~2010) Surgical procedure planned Family History Father Age: 66 Hypertension High cholesterol Mother Age: 58 Hypertension Cancer of kidney Fibromyalgia Brother Rhabdomyosarcoma of heart Grandmother Family history unknown Grandfather Family history unknown Grandmother Family history unknown Grandfather Myocardial infarction Social History marital status: number of children: 1 household members: spouse and children lives independently: Yes caregiver/support person: No housing: house pets and animals: No education level: college occupational status: employed current occupational exposures/hazards: No special vanessa needs: No seatbelt use: always do you feel safe at home: Yes Smoking Status: Never smoker second hand exposure: No alcohol intake: former substance use type: does not use during the past year weight has: remained stable well-balanced diet: about half the time daily servings fruits/ve-4 caffeine: Yes Type(s) of exercise: walking and normal ROM and activity frequency: 1-2 times per week Meds Home Medications and Allergies Home Medications Medication Instructions Recorded Confirmed Type triamcinolone acetonide 0.1 % 1 applic TOP TID #80 gram 04/24/20 02/16/21 Rx topical cream ondansetron 8 mg disintegrating 8 mg PO Q8H PRN #30 tab 07/31/20 02/16/21 Rx tablet folic acid 800 mcg tablet 0.8 mg PO DAILY 08/07/20 02/16/21 History sertraline 25 mg tablet 25 mg PO DAILY #30 tab 08/11/20 02/16/21 Rx metoclopramide HCl 5 mg tablet 5 mg PO QACHS PRN #20 tab 09/04/20 02/16/21 Rx Allergies Allergy/AdvReac Type Severity Reaction Status Date / Time No Known Drug Allergies Allergy Verified 02/16/21 09:55 Review of Systems Review of Systems Narrative: She has had a cough the last couple of days but no fever or known exposure to COVID. Review of systems otherwise negative. Exam Vital Signs (past 8 hours): Temperature 36.0? blood pressure 108/74 heart rate 93 Const General: healthy appearing and comfortable HENMT Head: normal to inspection Ears: hearing grossly normal bilaterally Nose: external nose normal Face and sinus: normal facial exam Mouth: oral mucosae normal Eyes General: appearance normal, both eyes and all related structures Neck Neck: normal visual inspection Resp Effort & Inspection: normal respiratory effort Auscultation: clear to auscultation bilaterally Cardio Rate: regular rate Rhythm: regular rhythm Heart Sounds: no murmurs GI Other: Gravid External Female Exam: normal external appearance Manual OB Exam: dilated 4, effaced 75% and station -2 Presentation: vertex Estimated Weight (lbs): 7 Back/Spine/Pelvis Back: normal to inspection Skin General: no rashes or lesions noted Extrem General: normal to inspection and no pedal edema Objective Labs Result Diagrams: 02/21/21 08:15 Assessment and Plan Assessment and Plan Assessment and Plan narrative: 30-year-old at 39 weeks and 1 day with spontaneous rupture of membranes at home at approximately 5:45 a.m. with clear fluid. She is GBS negative. was complicated by the loss of her on 02/05/21 from ALS. She has good family support, is in counseling and taking sertraline. 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 Wade at delivery if possible. We discussed that we can manage expectantly for now as she is GBS negative, fluid is clear, she is afebrile and EFM category 1. Dr. Wade should be available early this afternoon. We also discussed that is entirely possible that she progresses into labor spontaneously over the next several hours. She would like an epidural eventually and was reassured that there should be time to complete this when she is ready. Will let her eat and ambulate as desired. Reassess at noon today or sooner if needed.
[2021-02-21 08:24] LABS: Add Manual Diff / Slide Review NO; Basophils Absolute Auto 100 /uL (0-100); Eosinophils Absolute Auto 100 /uL (0-450); Eosinophils Percent Auto 0.5 % (2-4); Hematocrit 29.9 % (36-46); Hemoglobin 9.7 g/dL (12.0-16.0); Lymphocytes Absolute Auto 1600 /uL (1100-4500); Lymphocytes Percent Auto 11.1 % (25-40); Mean Corpuscular HGB Conc 32.5 % (30-36); Mean Corpuscular Hemoglobin 25.7 PG (26-34); Mean Corpuscular Volume 79.1 fL (80-100); Monocytes Absolute Auto 700 /uL (0-900); Monocytes Percent Auto 5.1 % (3-14); Neutrophils Absolute Auto 12000 /uL (1500-7000); Neutrophils Percent Auto 82.3 % (50-75); Platelet Count 171 X10^3/uL (150-400); Red Blood Cell Count 3.78 X10^6/uL (4.0-5.2); Red Cell Distribution Width 14.7 % (11.6-14.8); White Blood Cell Count 14.6 X10^3/uL (4.5-11.0)
[2021-02-21 08:59] VITALS: BP 108/74
[2021-02-21 10:21] LABS: COVID19 - ADMIT (NP swab/PCR) Negative (Negative)
[2021-02-21] MEDS: LACTATED RINGERS 1,000 ML 100 ML IV (12:45)
--- NOTE | 2021-02-21 13:04 | PM.OBPNLAB ---
Date/Time Date Patient Seen: 02/21/21 Time Patient Seen: 13:04 Pain Control Pain control: tolerating well Pelvic Exam Dilation (cm): 5 Effacement (%): 80 station: -1 Contractions Contractions on admission: none Monitor mode: External Status status: Category l Heart Rate Baseline: 130 Monitor Accelerations: Present Monitor Decelerations: Absent Monitor Variability: Moderate Assessment and Plan Comments: 30yo at 39w1d here with PROM with clear fluid. without medical complications. Significant grief due to the loss of her from ALS on 02/05/21. She has good family support, is in counseling, and is taking sertraline. GBS negative, Rh positive. - Expectant management, anticipate - FHT reassuring - GBS negative, no prophylaxis indicated - Epidural for pain control now - No transition to active labor, now 7 hrs after rupture. Will initiate pitocin after discussion with pt. Titrate as tolerated.
[2021-02-21] MEDS: FENT 2MCG/ML BUPIV 0.125% EPI 200 MCG/100 ML PLAST..BAG 12 MCG EPIDURAL ×2 (13:42→19:49)
[2021-02-21] MEDS: OXYTOCIN PREMIX 30 UNIT/500 ML PLAST..BAG IV (14:04)
--- NOTE | 2021-02-21 14:09 | PM.AN.REGBLK ---
Regional Block Pre-procedure Procedure: Continuous Lumbar Epidural for L&D Attending OB provider: Lynsey Wade PMH/ROS narrative: for induction of labor. (+) grief over recent loss of to ALS. Hx: No personal or family history of anesthesia problems. PSH/Anesthesia history narrative: Previous epidural, RC 4.5, rate 13.5-->15mL/hr, no issues. Exam narrative: MP1, RRR, CTAB, flat affect ASA Class: II Labs: Hct 29.9 % (36-46) L 02/21/21 08:15 Plt Count 171 X10^3/uL (150-400) 02/21/21 08:15 Medications: Current Medications Generic Name Dose Route Start Last Admin Trade Name Freq PRN Reason Stop Dose Admin Benzocaine 1 each 02/21/21 13:02 Benzocaine/Menthol 1 Gissel Pkt PO Q1HR PRN Sore Throat Calcium Carbonate 1,000 mg 02/21/21 06:58 Calcium Carbonate 500 Mg Tab PO Q2HR PRN Dyspepsia Carboprost Tromethamine 250 mcg 02/21/21 06:58 Carboprost 250 Mcg/Ml Ampul IM Q90M PRN Bleeding Fentanyl 50 mcg 02/21/21 06:58 Fentanyl 100 Mcg/2 Ml Inj IV Q1H PRN Pain, Moderate (4-6) Lactated Ringer's 1,000 mls @ 100 mls/hr 02/21/21 07:00 02/21/21 12:45 Lactated Ringers IV 100 mls/hr CONT KELLY Administration Oxytocin/Lactated Ringer's 30 unit in 500 mls @ 200 mls/hr 02/21/21 06:58 Oxytocin Premix IV CONT PRN Bleeding Protocol Oxytocin/Lactated Ringer's 30 unit in 500 mls @ 3 mls/hr 02/21/21 07:00 02/21/21 14:04 Oxytocin Premix IV 3 milliunit/min TITRATE KELLY 3 mls/hr Administration Protocol 3 MILLIUNIT/MIN Tranexamic Acid 1,000 mg/ 100 mls @ 200 mls/hr 02/21/21 06:58 Sodium Chloride IV NOW PRN Bleeding Methylergonovine Maleate 0.2 mg 02/21/21 06:58 Methylergonovine 0.2 Mg/Ml Vial IM NOW PRN Bleeding Methylergonovine Maleate 0.2 mg 02/21/21 06:58 Methylergonovine 0.2 Mg Tablet PO Q6HR PRN Heavy Bleeding Misoprostol 1,000 mcg 02/21/21 06:58 Misoprostol 200 Mcg Tablet HI NOW PRN Bleeding Misoprostol 400 mcg 02/21/21 06:58 Misoprostol 200 Mcg Tablet SL NOW PRN Bleeding Misoprostol 800 mcg 02/21/21 06:58 Misoprostol 200 Mcg Tablet HI NOW PRN Bleeding Ondansetron HCl 4 mg 02/21/21 06:58 Ondansetron 4 Mg/2 Ml Inj IV Q4HR PRN Nausea And Vomiting Oxytocin 10 unit 02/21/21 06:58 Oxytocin 10 Unit/Ml Vial IM NOW PRN Bleeding Sertraline HCl 25 mg 02/21/21 13:16 Sertraline 50 Mg Tablet PO DAILY KELLY Allergies: Allergies Allergy/AdvReac Type Severity Reaction Status Date / Time No Known Drug Allergies Allergy Verified 02/16/21 09:55 Procedure Insertion date: 02/21/21 Insertion time: 14:54 Prep/Local: betadine x3 (chloroprep) and 1% lidocaine Interspace: L2-3 Patient position: sitting Needle: 18 gauge Isidra Loss of resistance with: saline RC at (cm): 5 Catheter placed at SKIN (cm): 10 Insertion: No CSF, No Blood, Yes Paresthesia with insertion, No Paresthesia with injection and No Test dose reaction Initial Medications TEST DOSE time: 14:54 TEST DOSE: 1.5% lidocaine with epinephrine 1:200k (mL): 5 BOLUS DOSE time: 14:55 BOLUS DOSE (mL): 2 BOLUS DOSE med: other (100mcg fentanyl via epidural catheter) Infusion INFUSION: 0.0625% bupivacaine and with fentanyl 2 mcg/mL Initial rate (mL/hr): 12 Subsequent interventions: First attempt at L3-4 with only os encountered. L2-3 single pass, dural puncture attempted with needle through needle technique - no CSF, (+) RLE paresthesia, resolved with needle removal. Easy thread of catheter without paresthesia. Post-procedure Anesthesia time START: 13:29 Anesthesia time END: 07:50 Post-procedure Anesthesia Assessment: No Anesthesia complications
[2021-02-21] MEDS: SERTRALINE 50 MG TABLET 25 MG PO (16:22)
[2021-02-21] MEDS: BENZOCAINE/MENTHOL 1 LOZ PKT 1 EACH PO (17:34)
--- NOTE | 2021-02-21 21:11 | PM.OBPRVD ---
Labor & Delivery Delivery date: 02/21/21 Intrapartal Events: None Cervical ripening method: none Induction method: per pitocin protocol Delivery monitor: external FHT Route of delivery: Episiotomy description: None L&D Laceration Description: Perineal - 2nd Degree Delivery repair: vicryl and chromic Estimated blood loss (mL): 450 Anesthesia Type: Epidural Complications: None Narrative: PROCEDURE: at 39w1d presented with PROM and was admitted to Labor and Delivery. She was started on pitocin after no evidence of labor 7 hours after rupture. The patient progressed through the 1st stage over 12 hours. Pain was controlled with an epidural. The patient progressed through the 2nd stage over 2.5 hours and delivered a viable male with APGARs 8/9 at 20:23 via without complications. FHT remained Category I and II (with intermittent variable decels) throughout labor. Nuchal cord x1 was reduced at the perineum. The cord was cut and clamped after it stopped pulsating. The perineum and vagina were inspected with 2nd degree laceration noted, that extended inferiorly to an external hemorrhoid but not into the rectal mucosa. The anal sphincter was noted to be visible not not fully lacerated. This was reinforced with O-Vicryl. The hemorhoidal tissue was repaired with 4-O Chromic. The remainder of the 2nd degree laceration was repaired with 2-O Vicryl in the usual fashion. PREPROCEDURE DIAGNOSIS: Intrauterine at 39w1d Depression GBS negative RH positive POSTPROCEDURE DIAGNOSIS: Intrauterine at 39w1d, delivered Same as preprocedure Baby 1: Infant gender: Male Presentation: vertex Position: Right Occiput Anterior Placenta delivery description: Spontaneous Cord Vessel Description: 3 Vessels and Nuchal Cord (reduced at perineum) score (1 min): 8 score (5 min): 9 weight: 9 lb 3.057 oz Plan for aftercare: Routine care
[2021-02-21] MEDS: IBUPROFEN 600 MG TABLET PO (21:46)
[2021-02-21] MEDS: OXYCODONE IR 5 MG TABLET PO ×2 (21:47→23:34)
[2021-02-21] MEDS: ACETAMINOPHEN 325 MG TABLET 650 MG PO (22:49)
[2021-02-21] MEDS: DOCUSATE 100 MG CAPSULE PO (23:34)
[2021-02-22] MEDS: IBUPROFEN 600 MG TABLET PO ×3 (03:43→14:53)
[2021-02-22] MEDS: OXYCODONE IR 10 MG TABLET PO (03:43)
[2021-02-22] MEDS: BENZOCAINE/MENTHOL 1 LOZ PKT 1 EACH PO ×2 (04:05→18:02)
[2021-02-22] MEDS: ACETAMINOPHEN 325 MG TABLET 650 MG PO ×3 (05:00→20:00)
[2021-02-22 06:33] LABS: Hematocrit 24.6 % (36-46); Hemoglobin 7.9 g/dL (12.0-16.0)
[2021-02-22] MEDS: DOCUSATE 100 MG CAPSULE PO (09:35)
[2021-02-22] MEDS: BISACODYL 5 MG TABLET PO (09:35)
[2021-02-22] MEDS: SERTRALINE 50 MG TABLET 25 MG PO (09:37)
[2021-02-22] MEDS: PRENATAL VIT,CALC/IRON/FOLIC 1 TABLET 1 TAB PO (09:38)
[2021-02-22] MEDS: OXYCODONE IR 5 MG TABLET PO ×2 (13:12→17:37)
[2021-02-22 17:37] VITALS: TEMP 37.1
--- NOTE | 2021-02-22 17:56 | PM.OBPN.1 ---
Subjective - OB Subjective Date Patient Seen: 02/22/21 Time Patient Seen: 07:30 Interval history: Pt is doing well. She was initially unable to void, but has not been able to do so. She has significant perineal and tailbone pain, but it is controlled with the pain medication. Her lochia is appropriate. She is with good latch. She has passed flatus. Exam Vital Signs (past 8 hours): - 02/22/21 17:37 Temperature 98.8 F Narrative Exam Narrative: Gen: NAD, sitting comfortably in bed, appears well CV: RRR, no murmurs Resp: clear to auscultation bilaterally Abd: soft, appropriately tender, fundus firm and below the umbilicus, nondistended Ext: no edema Objective Labs Result Diagrams: 02/22/21 06:23 Labs: Laboratory Results - last 24 hr 02/22/21 06:23 Hgb 7.9 L Hct 24.6 L Assessment & Plan Plan Comments: Pt is a 30yo PPD#1 s/p without complications. Pt doing well. - Normal care - support Time Spent With Patient Time: Total time spent is greater than 50% in coordination of care (as documented) at patient's floor/unit and/or counseling patient: Time with patient: 15-24 minutes
[2021-02-23] MEDS: BENZOCAINE/MENTHOL 1 LOZ PKT 1 EACH PO (04:28)
[2021-02-23] MEDS: IBUPROFEN 600 MG TABLET PO (07:18)
[2021-02-23] MEDS: ACETAMINOPHEN 325 MG TABLET 650 MG PO (07:20)
--- NOTE | 2021-02-23 08:45 | PM.OBDS.1 ---
Discharge Providers Provider Date of admission: 02/21/21 06:28 Discharge Date: 02/23/21 Primary care physician: Lynsey Wade MD Consults: 02/22/21 21:08 Consult to Dinkey Engine Mechanic Routine Comment: Discharge provider: Lynsey Wade MD Summary Hospital Course Date Patient Seen: 02/23/21 Time Patient Seen: 07:50 Diagnoses: 39w1d gestation Depression GBS negative Rh positive Hospital Course: The pt presented with PROM. After not progressed into active labor on her own, she was started on Pitocin.Her pain was controlled with an epidural. She progressed to complete and had spontaneous vaginal delivery of a viable baby boy on 02/21/2021. A 2nd degree perineal laceration was then repaired. There were no complications with delivery. , there are also no complications. At the time of discharge she was voiding, ambulating, passing flatus without difficulty. Due to the extensive nature of her 2nd degree laceration she will be continued on stool softeners at discharge. She breastfed while in the hospital but plans to formula feed at home. Her pain was adequately controlled. Her lochia was decreasing appropriately. She will follow up in clinic in 6 weeks for her check. Peripartum Data Infant Delivery Method: Natural Vaginal Laceration Description: Perineal - 2nd Degree Episiotomy description: None Procedures: Spontaneous vaginal delivery complications: none Harvest 1: Gender: Male Disposition of : home Discharge Diagnosis (1) Vaginal delivery: Status: Acute Status at Discharge Cognitive/behavioral status at discharge: oriented Functional status at discharge: independent ambulation Overall status at discharge: patient is progressing back to baseline Time Spent with Patient Time attestation: Total time spent providing and/or coordinating discharge services: Time spent: Less than 30 minutes Objective Labs Result Diagrams: 02/22/21 06:23 Exam Narrative Exam Narrative: Gen: NAD, sitting comfortably in bed, appears well CV: RRR, no murmurs Resp: clear to auscultation bilaterally Abd: soft, appropriately tender, fundus firm and below the umbilicus, nondistended Ext: no edema Discharge Plan Discharge Plan Patient Disposition: Home Discharge orders & Medications Prescriptions: Continued sertraline 25 mg tablet 25 mg PO DAILY Qty: 30 RF: 2 triamcinolone acetonide 0.1 % cream 1 applic TOP TID Qty: 80 RF: 0 Discontinued ondansetron 8 mg tablet,disintegrating 8 mg PO Q8H PRN (Reason: nausea and vomiting) Qty: 30 RF: 5 metoclopramide HCl 5 mg tablet 5 mg PO QACHS PRN (Reason: nausea and vomiting) Qty: 20 RF: 0 folic acid 800 mcg tablet 0.8 mg PO DAILY RF: 0 Follow up/Referrals: Lynsey Wade MD [Primary Care Provider] - 6 Weeks (Office will make an appointment for 6 weeks when Min,) Diet/Activity/Treatments Diet: Diet as Tolerated and Regular Skin/Wound/Dressing Care Report to your healthcare provider any signs of infection, such as:: chills, fever, increased pain and unusual drainage Visit Report/Discharge Packet Instructions: DI for Labor and Delivery, Vaginal Visit Report Forms: Patient Portal/API, Stroke Signs & Symptoms Discharge Data Primary Care Provider: Lynsey Wade
[2021-02-23] MEDS: BISACODYL 5 MG TABLET PO (09:17)
[2021-02-23 10:13] VITALS: BP 109/71; PULSE 83; RESP 83; TEMP 36.3
== END 2021-02-23 11:34 | disposition home or self-care (01) | DRG 807 ==
PROVIDERS: Admitting Provider Family Medicine; PCP Family Medicine; Referring Provider Family Medicine; Visit Provider Family Medicine
DX: O42.02 Full-term premature rupture of membranes, onset of labor within 24 hours of rupture (principal); Z37.0 Single live birth; Z3A.39 39 weeks gestation of pregnancy; O70.1 Second degree perineal laceration during delivery; O76 Abnormality in fetal heart rate and rhythm complicating labor and delivery; O99.891 Other specified diseases and conditions complicating pregnancy; K64.4 Residual hemorrhoidal skin tags; O99.344 Other mental disorders complicating childbirth; F32.89 Other specified depressive episodes; Z20.822 Contact with and (suspected) exposure to COVID-19
CPT/HCPCS: 01967; 36415; 59050; 59400; 84112; 85014; 85018; 85025; 86850; 86900; 86901; 87635; C9803; G0379; J2590

== ENCOUNTER 2021-04-14 15:21 | Emergency (ER) | payer OTHER, SELFPAY ==
[2021-04-14 15:27] VITALS: BP 121/57; PULSE 80; RESP 18; TEMP 36.4; O2SAT 99
--- NOTE | 2021-04-14 16:36 | ED.RECABL ---
HPI - Recheck/Abnormal Lab/Rx <MODE [place] - Last Filed: 04/14/21 17:45> General Chief Complaint: Recheck/Abnormal Lab/Rx Stated Complaint: Stuck herself with Dirty needle accident LT INDEX Time Seen by Provider: 04/14/21 15:31 Source: patient Mode of arrival: Ambulatory History of Present Illness HPI narrative: The patient is a 31-year-old female nonsmoker who denies pertinent medical history who presents with a chief complaint of an exposure at work. She states that she stuck herself with a dirty needle on her left index after a patient jumped while she was given a flu injection. Patient states she believes that her tetanus is up-to-date, she had a 3 shot series of hepatitis-B. She states that she believes the person that she was exposed to be of low risk for communicable disease, though she is not sure. Started the [facility]'s policy for needlestick yet, states that she thought of a quicker to come in for labs today here. Related Data Previous Rx's Medication Instructions Recorded etonogestrel 0.12 mg-ethinyl 1 vag ring VAGINAL QMONTH #3 ea 09/28/16 estradiol 0.015 mg/24 hr vaginal ring (NuvaRing) triamcinolone acetonide 0.1 % 1 applic TOP TID #80 gram 04/24/20 topical cream sertraline 25 mg tablet 25 mg PO DAILY #30 tab 08/11/20 Allergies Allergy/AdvReac Type Severity Reaction Status Date / Time No Known Drug Allergies Allergy Verified 02/16/21 09:55 Review of Systems <MODE [place] - Last Filed: 04/14/21 17:45> Review of Systems Narrative: GENERAL: Denies chills, fatigue, malaise, fever, sweats. HEENT: Denies sinus pain, ear pain, sore throat, difficulty swallowing, dizziness. RESPIRATORY: Denies dyspnea, cough, wheezing, hemoptysis, sputum. CARDIOVASCULAR: Denies chest pain, palpitations, orthopnea, edema, GASTROINTESTINAL: Denies nausea, vomiting, abdominal pain, diarrhea, constipation, melena. : Denies dysuria, frequency, incontinence, hematuria, urinary retention. MUSCULOSKELETAL: denies weakness, joint pain, or bony pain SKIN: See HPI NEUROLOGIC: Denies weakness, headache, numbness, change in speech, confusion, seizures, incoordination. PSYCHIATRIC: No concerning psychosocial issues. 12 point review of systems is negative except for those stated above Patient History <MODE [place] - Last Filed: 04/14/21 17:45> Medical History (Updated 04/14/21 @ 16:41 by MODE Chino) 39 weeks gestation of depression Skin rash Vaginal delivery Surgical History Anesthesia History of third molar tooth extraction (~2010) Surgical procedure planned Family History Father Age: 66 Hypertension High cholesterol Mother Age: 58 Hypertension Cancer of kidney Fibromyalgia Brother Rhabdomyosarcoma of heart Grandmother Family history unknown Grandfather Family history unknown Grandmother Family history unknown Grandfather Myocardial infarction Social History marital status: number of children: 1 household members: spouse and children lives independently: Yes caregiver/support person: No housing: house pets and animals: No education level: college occupational status: employed current occupational exposures/hazards: No special vanessa needs: No seatbelt use: always do you feel safe at home: Yes Smoking Status: Never smoker second hand exposure: No alcohol intake: former substance use type: does not use during the past year weight has: remained stable well-balanced diet: about half the time daily servings fruits/ve-4 caffeine: Yes Type(s) of exercise: walking and normal ROM and activity frequency: 1-2 times per week Smoking Status: Never smoker Exam <MODE [place] - Last Filed: 04/14/21 17:45> Narrative Exam Narrative: GENERAL: This is a well-nourished, well-developed patient, in day no acute distress HEAD: Atraumatic. Normocephalic. No temporal or scalp tenderness. EYES: Pupils equal round and reactive. Extraocular motions intact. No scleral icterus. No injection or drainage. ENT: Nose without bleeding, purulent drainage or septal hematoma. Wearing a mask. Airway patent. NECK: Trachea midline. No JVD or lymphadenopathy. Supple, nontender, no meningeal signs. CARDIOVASCULAR: Regular rate and rhythm RESPIRATORY: No cough. No increased respiratory effort. No accessory muscle use. EXTREMITIES: No clubbing, cyanosis, or edema. No joint tenderness, effusion, or edema noted. BACK: Nontender without deformity or crepitance. No flank tenderness. NEURO: AOx3. SKIN: Small puncture dino/ ? lac on tip of left finger Initial Vital Signs Initial Vital Signs: Vital Signs Temperature 97.5 F L 04/14/21 15:27 Pulse Rate 80 04/14/21 15:27 Respiratory Rate 18 04/14/21 15:27 Blood Pressure 121/57 L 04/14/21 15:27 Pulse Oximetry 99 04/14/21 15:27 <Catarino Jamil DO - Last Filed: 04/14/21 18:08> Initial Vital Signs Initial Vital Signs: Vital Signs Temperature 97.5 F L 04/14/21 15:27 Pulse Rate 80 04/14/21 15:27 Respiratory Rate 18 04/14/21 15:27 Blood Pressure 121/57 L 04/14/21 15:27 Pulse Oximetry 99 04/14/21 15:27 Scores <MODE [place] - Last Filed: 04/14/21 17:45> GCS [place] coma scale eye opening: Spontaneous [place] coma scale verbal response: Orientated [place] coma scale motor response: Obey commands [place] coma scale total score: 15 <Catarino Jamil DO - Last Filed: 04/14/21 18:08> GCS [place] coma scale total score: 15 Course <MODE [place] - Last Filed: 04/14/21 17:45> Orders Ordered: ED Orders 04/14/21 16:10 Alanine Aminotransferase Stat HIV 1 & 2 Ab/Ag 4th Gen Combo Stat Hep C Virus Ab w/Reflex Quant Stat Vital Signs Vital signs: Vital Signs - 8 hr 04/14/21 15:27 Temperature 97.5 F L Pulse Rate 80 Respiratory Rate 18 Blood Pressure 121/57 L Pulse Oximetry 99 <Catarino Jamil DO - Last Filed: 04/14/21 18:08> Orders Ordered: ED Orders 04/14/21 16:10 Alanine Aminotransferase Stat HIV 1 & 2 Ab/Ag 4th Gen Combo Stat Hep C Virus Ab w/Reflex Quant Stat Vital Signs Vital signs: Vital Signs - 8 hr 04/14/21 15:27 Temperature 97.5 F L Pulse Rate 80 Respiratory Rate 18 Blood Pressure 121/57 L Pulse Oximetry 99 MDM - Recheck/Abnormal Lab/Rx <LISET [place]-BC - Last Filed: 04/14/21 17:45> Lab Data Labs: Lab Results 04/14/21 Range/Units 16:10 ALT 23 (<35) IU/L MDM Narrative Medical decision making narrative: The patient is a 31-year-old female who presents with a chief complaint of a needlestick. Thus initial exposure labs were drawn. I discussed at length with the patient that she needs follow-up labs regarding her exposure here. I did encourage her to follow through Steven's exposure protocol. She states her tetanus is up-to-date, she is fully vaccinated against hepatitis-B, she is not familiar with the patient that she was exposed to and will follow Steven's procedure. She declines post exposure prophylaxis for HIV today, as she believes that is a low risk patient. She washed out the injury after happen. Discussed at length importance of follow-up with primary care provider in the next several days. Patient has no questions or concerns upon discharge states understanding of return precautions as well as follow-up care. <Catarino Jamil DO - Last Filed: 04/14/21 18:08> Lab Data Labs: Lab Results 04/14/21 Range/Units 16:10 ALT 23 (<35) IU/L Discharge Plan Departure Patient Disposition: Home Clinical Impression: Accidental needlestick injury with exposure to body fluid Instructions: How to Handle Body Fluid Exposure -- Healthcare Worker, How to Handle Body Fluid Exposure -- Non-Healthcare Worker (At Home, Caregi Activity Restrictions/Additional Instructions: Thank you for trusting us with your care today. As discussed, we did your initial post exposure labs. Please follow-up with primary care provider as he will need a future lab work and monitoring. These labs will be available 3 primary care provider or medical records. You have elected to hold off on post exposure prophylaxis for HIV at this point. However please follow [facility]'s procedure regarding needlestick process for employees Please come back to the emergency department for any acute concerns Prescriptions: No Action sertraline 25 mg tablet 25 mg PO DAILY Qty: 30 RF: 2 triamcinolone acetonide 0.1 % cream 1 applic TOP TID Qty: 80 RF: 0 etonogestrel-ethinyl estradiol [NuvaRing] 0.12-0.015 mg/24 hr ring 1 vag ring Vaginal QMONTH Qty: 3 RF: 3 Referrals: Lynsey Wade MD [Primary Care Provider] - <Catarino Jamil DO - Last Filed: 04/14/21 18:08> Cosign ED Attending Cosignature Attestation: Dr Jamil Co-Sign Statement: I was available for consultation during this patient's emergency department visit. This chart is signed by myself for administrative purposes only. I did not have direct contact with this patient during this visit. They were seen independently by the APC.
[2021-04-14 17:02] LABS: Alanine Aminotransferase 23 IU/L (<35)
[2021-04-14 18:18] LABS: HIV 1 & 2 Ab/Ag 4th Gen Combo NEGATIVE (NEGATIVE); Hep C Virus Ab w/Reflex Quant NEGATIVE s/c (NEGATIVE)
[2021-04-15 06:54] LABS: Hepatitis B Surf Ab Qualitativ Non Reactive (.)
== END 2021-04-14 17:07 | disposition home or self-care (01) ==
PROVIDERS: Emergency Provider Nurse Practitioner Family; PCP Family Medicine
DX: Z77.21 Contact with and (suspected) exposure to potentially hazardous body fluids (principal); W46.1XXA Contact with contaminated hypodermic needle, initial encounter; Y99.0 Civilian activity done for income or pay
CPT/HCPCS: 36415; 84460; 86706; 86803; 87389; 99281; 99282

== ENCOUNTER → 2022-12-09 11:54 | Outpatient (CLI) | payer OTHER, SELFPAY ==
[2022-12-09 12:34] LABS: Appearance Urine UA CLEAR; Bilirubin Urine UA NEGATIVE (NEGATIVE); Color Urine UA YELLOW; Glucose Urine UA NEGATIVE (Negative); Ketones Urine UA NEGATIVE (NEGATIVE); Leukocyte Esterase Urine UA TRACE (NEGATIVE); Nitrite Urine UA NEGATIVE (Negative); Occult Blood Urine UA NEGATIVE (Negative); Protein Urine UA NEGATIVE (Negative); Specific Gravity Urine UA <=1.005 (1.000-1.035); Urobilinogen Urine UA 0.2 E.U./dL (0.2)
[2022-12-09 12:40] LABS: pH Urine UA 6.5 (4.5-8.0)
[2022-12-09 12:41] LABS: Bacteria Urine Occasional (0-1); Culture Indicated Urine Specimen Cultured; RBC Urine None Seen (0-5/HPF); Squamous Epithelial Cell Urine 0-1 /HPF (0-5/HPF); WBC Urine 0-1/HPF (0-5/HPF)
== END ==
PROVIDERS: PCP Family Medicine; Referring Provider Family Medicine; Visit Provider Family Medicine
DX: R30.9 Painful micturition, unspecified (principal)
CPT/HCPCS: 81001; 87086

== ENCOUNTER 2023-08-09 08:08 | Emergency (ER) | payer OTHER, SELFPAY ==
--- NOTE | 2023-08-09 08:09 | DI.RAD.S_ITS ---
PROCEDURE: XR CHEST 1V INDICATIONS: chest pain TECHNIQUE: One view of the chest was acquired. COMPARISON: None. FINDINGS: Surgical changes and devices: None. Lungs and pleura: Submaximal inspiration. Question perihilar infiltrates versus vascular crowding. Mediastinum: Mediastinal contours appear normal. Heart size is normal. Bones and chest wall: No suspicious bony lesions. Overlying soft tissues appear unremarkable. IMPRESSION: Question perihilar infiltrates versus vascular crowding. Consider possible viral pneumonia, subtle Dictated by: Joseph Villalba M.D. on 08/09/2023 at 8:59 Approved by: Joseph Villalba M.D. on 08/09/2023 at 8:59
[2023-08-09 08:11] VITALS: BP 125/86; PULSE 83; RESP 16; TEMP 36.6; O2SAT 97; BMI 28.3
--- NOTE | 2023-08-09 08:58 | ED.CHESTPAIN ---
HPI - Chest Pain General Chief Complaint: Chest Pain Stated Complaint: SOB/ chest pain T-1 Time Seen by Provider: 08/09/23 08:09 History of Present Illness HPI narrative: 33yoF presents with 2 days of central sternal chest pain. Patient went to [facility] yesterday but it was extremely crowded and busy and due to the wait she decided to leave. Pain worse when laying down. Denies family hx of heart problems. Denies PMH, takes no daily medications. Denies smoking hx. Related Data Previous Rx's Medication Instructions Recorded etonogestrel 0.12 mg-ethinyl 1 vag ring vaginal MONTHLY #3 ea 09/28/16 estradiol 0.015 mg/24 hr vaginal ring (EluRyng) triamcinolone acetonide 0.1 % See Rx Instructions .Route 12/30/21 topical cream .COMPLEX #80 grams sertraline 50 mg tablet See Rx Instructions .Route 06/29/22 .COMPLEX #90 tabs Allergies Allergy/AdvReac Type Severity Reaction Status Date / Time No Known Drug Allergies Allergy Verified 04/16/21 10:09 Review of Systems Review of Systems Narrative: negative except as noted above Patient History Medical History Skin rash depression Vaginal delivery 39 weeks gestation of Surgical History Anesthesia Surgical procedure planned History of third molar tooth extraction (~2010) Family History Father Age: 69 Hypertension High cholesterol Mother Age: 61 Hypertension Cancer of kidney Fibromyalgia Brother Rhabdomyosarcoma of heart Grandmother Family history unknown Grandfather Family history unknown Grandmother Family history unknown Grandfather Myocardial infarction Social History marital status: number of children: 1 household members: spouse and children lives independently: Yes caregiver/support person: No housing: house pets and animals: No education level: college occupational status: employed current occupational exposures/hazards: No special vanessa needs: No seatbelt use: always do you feel safe at home: Yes Smoking Status: Never smoker second hand exposure: No alcohol intake: former substance use type: does not use during the past year weight has: remained stable well-balanced diet: about half the time daily servings fruits/ve-4 caffeine: Yes Type(s) of exercise: walking and normal ROM and activity frequency: 1-2 times per week Smoking Status: Never smoker Exam Initial Vital Signs Initial Vital Signs: Vital Signs Temperature 97.8 F 08/09/23 08:11 Pulse Rate 83 08/09/23 08:11 Respiratory Rate 16 08/09/23 08:11 Blood Pressure 125/86 08/09/23 08:11 Pulse Oximetry 97 08/09/23 08:11 Oxygen Delivery Method Room Air 08/09/23 08:11 Const General: cooperative, healthy appearing, comfortable, well developed and well groomed Chest Chest: normal inspection of the chest and tenderness (along bilateral sternal borders) Resp Effort & Inspection: normal respiratory effort and able to speak in complete sentences Neuro General: patient alert, patient awake, patient oriented x3 and gait normal Course Orders Ordered: ED Orders 08/09/23 08:09 Chest [XR chest 1V] Stat EKG-12 Lead Stat Vital Signs Vital signs: Vital Signs - 8 hr 08/09/23 08:11 08/09/23 09:20 Temperature 97.8 F Pulse Rate 83 74 Respiratory Rate 16 Blood Pressure 125/86 118/78 Pulse Oximetry 97 98 Oxygen Delivery Method Room Air Room Air MDM - Chest Pain Differential Diagnosis Differential diagnosis: Likely pneumothorax, atypical chest pain and costochondritis ECG Data Interpretation: normal sinus rhythm, rate 72, no ST-T wave changes, normal NH, normal EKG MDM Narrative Medical decision making narrative: Reproducible central sternal pain to palpation. EKG NSR without concerning findings. HEART score 0 based on story/age/risk factors. CXR with possible viral changes, no pneumothorax. Patient advised of results, recommended NSAIDs, tylenol, gentle stretching. Discharge Plan Departure Patient Disposition: Home Clinical Impression: Costalchondritis Instructions: DI for Costochondritis Activity Restrictions/Additional Instructions: Your EKG was normal today. Your chest X ray showed possible viral inflammation, although this is very mild. Take anti-inflammatories and or tylenol for pain. You can use gentle stretching exercises for pain. Follow up as needed with your primary care physician. Prescriptions: No Action triamcinolone acetonide 0.1 % cream See Rx Instructions .ROUTE .COMPLEX Qty: 80 0RF Dose Instruction: APPLY EXTERNALLY TO THE AFFECTED AREA THREE TIMES DAILY Rx Instructions: APPLY EXTERNALLY TO THE AFFECTED AREA THREE TIMES DAILY sertraline 50 mg tablet See Rx Instructions .ROUTE .COMPLEX Qty: 90 2RF Dose Instruction: TAKE 1 TABLET BY MOUTH DAILY Rx Instructions: TAKE 1 TABLET BY MOUTH DAILY etonogestrel-ethinyl estradiol [EluRyng] 0.12-0.015 mg/24 hr ring 1 vag ring vaginal MONTHLY Qty: 3 0RF Rx Instructions: Must be seen prior to any future refills. Referrals: Lynsey Wade MD [Primary Care Provider] - Stand Alone Forms: Patient Portal/API
[2023-08-09 09:20] VITALS: BP 118/78; PULSE 74; O2SAT 98
== END 2023-08-09 09:20 | disposition home or self-care (01) ==
PROVIDERS: Emergency Provider Emergency Medicine; PCP Family Medicine
DX: M94.0 Chondrocostal junction syndrome [Tietze] (principal); R07.9 Chest pain, unspecified
CPT/HCPCS: 71045; 93005; 93010; 99283; 99284

== ENCOUNTER → 2023-12-06 08:57 | Outpatient (CLI) | payer OTHER, SELFPAY ==
--- NOTE | 2023-12-06 08:58 | DI.RAD.S_ITS ---
PROCEDURE: FL GUIDED PICC PLACEMENT INDICATIONS: PICC line placement COMPARISON: None. FINDINGS: PICC was placed by the intravenous therapy team from the left side. Fluoroscopic spot film demonstrates the tip of PICC projecting to the area of proximal SVC. IMPRESSION: Tip of PICC projects to the area of proximal SVC. Dictated by: Melinda Henry M.D. on 12/07/2023 at 11:22 Approved by: Melinda Henry M.D. on 12/07/2023 at 11:23
== END ==
LOC: RAD 08:57
PROVIDERS: PCP Family Medicine; Referring Provider Family Medicine; Visit Provider Family Medicine
DX: Z45.2 Encounter for adjustment and management of vascular access device (principal); O21.0 Mild hyperemesis gravidarum
CPT/HCPCS: 36573

== ENCOUNTER → 2023-12-25 09:57 | Outpatient (CLI) | payer OTHER, SELFPAY ==
--- NOTE | 2023-12-25 09:58 | DI.US.S_ITS ---
PROCEDURE: US OB >= 14 WEEKS FETUS INDICATIONS: anatomy OUTSIDE/PRIOR DATING DATA: IVF HERB 05/19/2024 TECHNIQUE: Real-time scanning was performed of the fetus, with image documentation and biometric measurements. COMPARISON: [facility], , OB >= 14 WEEKS FETUS, 10/13/2020, 12:24. FINDINGS: General: A single living intrauterine gestation is present. Presentation: Vertex. Placenta: Placental position is left fundal , without previa. Amniotic fluid index: 14.4 cm, normal range is 5-24 cm. Single deepest vertical pocket is 4.2 cm. heart rate: 153 beats per minute. Maternal cervical canal: 3.3 cm long. Normal lower limit is 2.5 cm. biometrics: Biparietal diameter: 4.7 cm 20 weeks 2 days Head circumference: 17.3 cm 19 weeks 6 days Abdominal circumference: 14.6 cm 19 weeks 6 days Femur length: 3.1 cm 19 weeks 5 days Clinically estimated gestational age: 19 weeks 1 day Composite gestational age from present scan: 20 weeks 0 days Estimated weight and percentile: 315 g 83rd percentile Anatomic survey: Neuro: Ventricles are non-dilated at less than 10 mm. Cisterna magna is normal at 3-11 mm. Cerebellum is normal in size and morphology. Nuchal skin fold: Normal at less than 6 mm between 14-21 weeks gestational age. Face: Nose and lips, facial profile are normal. Spine: No evidence for spina bifida. Heart: 4-chambered heart is present, with normal ventricular outflow tracts. Diaphragm: Diaphragm is intact. Stomach: Left-sided stomach is present. Kidneys: No hydronephrosis. Normal is less than 5 mm in 2nd trimester, less than 7 mm in 3rd trimester. Cord: 3-vessel cord has orthotopic insertion. Bladder: Normal in size. Extremities: All 4 extremities identified. IMPRESSION: Single live intrauterine with gestational age today of 20 weeks 0 days. Anatomy is within normal limits. We strive to produce accurate, complete, and clear reports of imaging services. To assist us in improving patient care, this report was composed using standard report templates and voice recognition software. Therefore, it may contain abnormal punctuation, insertions and/or omissions. Occasional wrong-word or sound-alike substitutions may occur. Though we review the report and make efforts to correct it, we do recommend that the report be read carefully in proper context to recognize any text inaccuracies. Dictated by: Melinda Henry M.D. on 12/25/2023 at 16:02 Approved by: Melinda Henry M.D. on 12/25/2023 at 16:03
== END ==
LOC: US 09:57
PROVIDERS: PCP Family Medicine; Referring Provider Family Medicine; Visit Provider Family Medicine
DX: Z34.82 Encounter for supervision of other normal pregnancy, second trimester (principal); Z3A.20 20 weeks gestation of pregnancy
CPT/HCPCS: 76811

== ENCOUNTER → 2024-02-12 13:58 | Outpatient (CLI) | payer OTHER, SELFPAY ==
[2024-02-12 16:54] LABS: GTT (PREG) 1 Hour PP 50gm Dose 107 mg/dL (76-139)
== END ==
PROVIDERS: PCP Family Medicine; Referring Provider Family Medicine; Visit Provider Family Medicine
DX: Z34.80 Encounter for supervision of other normal pregnancy, unspecified trimester (principal)
CPT/HCPCS: 82950

== ENCOUNTER → 2024-03-25 10:14 | Outpatient (CLI) | payer OTHER, SELFPAY ==
[2024-03-25 11:06] LABS: Add Manual Diff / Slide Review NO; Basophils Absolute Auto 0 /uL (0-100); Basophils Percent Auto 0.3 % (0-2); Eosinophils Absolute Auto 100 /uL (0-450); Eosinophils Percent Auto 0.5 % (2-4); Hematocrit 29.4 % (36-46); Hemoglobin 9.8 g/dL (12.0-16.0); Lymphocytes Absolute Auto 1500 /uL (1100-4500); Lymphocytes Percent Auto 12.6 % (25-40); Mean Corpuscular HGB Conc 33.2 % (30-36); Mean Corpuscular Hemoglobin 27.1 PG (26-34); Mean Corpuscular Volume 81.5 fL (80-100); Monocytes Absolute Auto 600 /uL (0-900); Monocytes Percent Auto 5.2 % (3-14); Neutrophils Absolute Auto 9400 /uL (1500-7000); Neutrophils Percent Auto 81.4 % (50-75); Platelet Count 168 X10^3/uL (150-400); Red Blood Cell Count 3.61 X10^6/uL (4.0-5.2); Red Cell Distribution Width 13.6 % (11.6-14.8); White Blood Cell Count 11.6 X10^3/uL (4.5-11.0)
[2024-03-25 12:42] LABS: Appearance Urine UA CLEAR; Bilirubin Urine UA NEGATIVE (NEGATIVE); Color Urine UA YELLOW; Glucose Urine UA 1+ g/dL (Negative); Ketones Urine UA TRACE (NEGATIVE); Leukocyte Esterase Urine UA TRACE (NEGATIVE); Nitrite Urine UA NEGATIVE (Negative); Occult Blood Urine UA NEGATIVE (Negative); Protein Urine UA NEGATIVE (Negative); Specific Gravity Urine UA >=1.030 (1.000-1.035); Urobilinogen Urine UA 0.2 E.U./dL (0.2)
[2024-03-25 12:52] LABS: pH Urine UA 5.5 (4.5-8.0)
[2024-03-25 12:58] LABS: Bacteria Urine Many (>30); Calcium Oxalate Crystals Urine Few; Culture Indicated Urine Cult Not Indicated; RBC Urine None Seen (0-5/HPF); Squamous Epithelial Cell Urine 5-10 /HPF (0-5/HPF); Urine Volume 10mL (spun); WBC Urine 1-5/HPF (0-5/HPF)
[2024-03-25 13:54] LABS: Urine N gonorrhoeae NOT DETECTED
[2024-03-25 14:30] LABS: Urine Chlamydia NOT DETECTED
[2024-03-25 15:57] LABS: Hepatitis B Surface Antigen NEGATIVE s/c (NEGATIVE); Rubella Antibody IgG 92.1 IU/mL (>15)
[2024-03-25 16:26] LABS: HIV 1 & 2 Ab/Ag 4th Gen Combo NEGATIVE (NEGATIVE); Hep C Virus Ab w/Reflex Quant NEGATIVE s/c (NEGATIVE)
[2024-03-26 04:38] LABS: RPR Screen Non Reactive (Non Reactive)
== END ==
PROVIDERS: PCP Family Medicine; Referring Provider Family Medicine; Visit Provider Family Medicine
DX: Z34.01 Encounter for supervision of normal first pregnancy, first trimester (principal)
CPT/HCPCS: 36415; 80055; 81003; 81015; 86787; 86803; 86850; 86900; 86901; 87086; 87389; 87491; 87591

== ENCOUNTER → 2024-04-01 11:08 | Outpatient (CLI) | payer OTHER, SELFPAY ==
--- NOTE | 2024-04-01 11:10 | DI.US.S_ITS ---
PROCEDURE: US OB LIMITED INDICATIONS: growth u/s for size < dates OUTSIDE/PRIOR DATING DATA: The calculations are made using the IVF transfer date HERB of 05/19/2024. TECHNIQUE: Real-time scanning was performed of the fetus, with image documentation and biometric measurements. Endovaginal scanning: Not performed COMPARISON: None. FINDINGS: General: A single living intrauterine gestation is present. Presentation: Vertex. Placenta: Placental position is left fundal , without previa. Amniotic fluid index: 16.5 cm, normal range is 5-24 cm. Single deepest vertical pocket is 5.0 cm. heart rate: 135 beats per minute. Maternal cervical canal: Poorly visualized due to positioning. biometrics: Biparietal diameter: 8.7 cm, 35 weeks Head circumference: 30.7 cm, 34 weeks 1 day Abdominal circumference: 30.5 cm, 34 weeks 3 days Femur length: 6.5 cm, 33 weeks 2 days Clinically estimated gestational age: 33 weeks 1 day Composite gestational age from present scan: 34 weeks 2 days Estimated weight and percentile: 2367 g, 73rd percentile Other: Not applicable. IMPRESSION: Single living intrauterine at 33 weeks 1 day, HERB of 05/19/2024. Estimated weight of 2367 g, 73rd percentile. We strive to produce accurate, complete, and clear reports of imaging services. To assist us in improving patient care, this report was composed using standard report templates and voice recognition software. Therefore, it may contain abnormal punctuation, insertions and/or omissions. Occasional wrong-word or sound-alike substitutions may occur. Though we review the report and make efforts to correct it, we do recommend that the report be read carefully in proper context to recognize any text inaccuracies. Dictated by: Dimitri Ríos M.D. on 04/01/2024 at 15:52 Approved by: Dimitri Ríos M.D. on 04/01/2024 at 15:53
== END ==
LOC: US 11:09
PROVIDERS: PCP Family Medicine; Referring Provider Family Medicine; Visit Provider Family Medicine
DX: Z34.83 Encounter for supervision of other normal pregnancy, third trimester (principal); Z3A.33 33 weeks gestation of pregnancy
CPT/HCPCS: 76815

== ENCOUNTER → 2024-04-22 09:01 | Outpatient (CLI) | payer OTHER, SELFPAY ==
[2024-04-23 09:50] LABS: Strep Grp B PCR POS for Grp B Strep
== END ==
PROVIDERS: PCP Family Medicine; Visit Provider Family Medicine
DX: Z34.80 Encounter for supervision of other normal pregnancy, unspecified trimester (principal)
CPT/HCPCS: 87653

== ENCOUNTER 2024-04-26 17:56 | Outpatient (CLI) | payer OTHER, SELFPAY | END 2024-04-26 19:35 | disposition home or self-care (01) | LOC: OB 04-29 10:32 | PROVIDERS: PCP Family Medicine; Referring Provider Family Medicine; Visit Provider Family Medicine | DX: O47.03 False labor before 37 completed weeks of gestation, third trimester (principal); Z3A.36 36 weeks gestation of pregnancy | CPT/HCPCS: 59025; G0378; G0379 ==

== ENCOUNTER 2024-05-04 13:07 | Outpatient (CLI) | payer OTHER, SELFPAY ==
--- NOTE | 2024-05-04 14:29 | P.TNLD_ITS ---
Visit Information Visit Information Date of evaluation: 05/04/24 Primary OB Provider: Lynsey Wade On-call OB Provider: Mago Nieves Reason for Evaluation: Yes rule out labor Comments/Additional reasons for admission: Patient with increasingly painful contractions last night have slowed down some. Unsure if some leakage of fluid. Good movement. Vital Signs Vital Signs: 112/77, pulse 93, temperature 35.7? [facility] Medical History (Updated 05/04/24 @ 14:31 by Mago Nieves MD) Vaginal delivery depression Surgical History Anesthesia Surgical procedure planned History of third molar tooth extraction (~2010) Family History Father Age: 69 Hypertension High cholesterol Mother Age: 61 Hypertension Cancer of kidney Fibromyalgia Brother Rhabdomyosarcoma of heart Grandmother Family history unknown Grandfather Family history unknown Grandmother Family history unknown Grandfather Myocardial infarction Social History marital status: number of children: 2 household members: spouse and children lives independently: Yes caregiver/support person: Yes housing: condominium pets and animals: No education level: college occupational status: employed (certified pharmacy technician in retail pharmacy) current occupational exposures/hazards: No special vanessa needs: No travel history: over 6 months ago seatbelt use: always helmet use: Yes water heater temp set < 120 deg: Yes working smoke detector in home: Yes fire extinguisher in home: Yes carbon monox detector in home: Yes firearms in home: No do you feel safe at home: Yes Smoking Status: Never smoker second hand exposure: No alcohol intake: former (occasionally when not ) substance use type: does not use during the past year weight has: remained stable well-balanced diet: rarely or never daily servings fruits/ve-1 (a salad maybe twice a week) caffeine: Yes (Occasional black tea) Type(s) of exercise: none frequency: 1-2 times per week Evaluation Evaluation Baseline heart rate: 130 Variability: Moderate (11-25) monitor accelerations: Present Monitor Decelerations: Absent Contraction Frequency (minutes): 15 Uterine Contraction Intensity: Mild Category of Tracing: Reactive Status: Category l Cervical dilation (cm): 3 Cervical effacement (%): 50 station: -3 Non-invasive Membranes Rupture Test: negative Diagnosis, Plan/Disposition Final Diagnosis (1) False labor after 37 completed weeks of gestation: Status: Acute Plan/Disposition Plan: Patient with no change in cervix and few contractions on the monitor. AmniSure is negative. NST reactive. Patient has follow-up appointment with OB provider in 3 days. Routine labor, rupture membranes, decreased movement precautions. OB Disposition: home
== END 2024-05-04 14:30 | disposition home or self-care (01) ==
LOC: OB 05-06 06:13
PROVIDERS: PCP Family Medicine; Referring Provider Specialist; Visit Provider Specialist
DX: O47.1 False labor at or after 37 completed weeks of gestation (principal); Z3A.37 37 weeks gestation of pregnancy
CPT/HCPCS: 59025; 84112; G0378; G0379

== ENCOUNTER 2024-05-13 07:02 | Inpatient (IN) | payer OTHER, SELFPAY ==
[2024-05-13 07:57] LABS: Hematocrit 32.5 % (36-46); Hemoglobin 10.6 g/dL (12.0-16.0); Mean Corpuscular HGB Conc 32.5 % (30-36); Mean Corpuscular Hemoglobin 26.9 PG (26-34); Mean Corpuscular Volume 82.6 fL (80-100); Platelet Count 173 X10^3/uL (150-400); Red Blood Cell Count 3.94 X10^6/uL (4.0-5.2); Red Cell Distribution Width 16.9 % (11.6-14.8); White Blood Cell Count 11.6 X10^3/uL (4.5-11.0)
[2024-05-13 08:01] LABS: Add Manual Diff / Slide Review YES
[2024-05-13] MEDS: LACTATED RINGERS 1,000 ML 100 ML IV ×2 (08:26→11:04)
[2024-05-13] MEDS: AMPICILLIN 2,000 MG in SODIUM CHLORIDE 0.9% 100 ML 200 MG IV (08:27)
[2024-05-13 08:28] LABS: Neutrophils Absolute Manual 8584 /uL (3000-5900); RBC Morphology Normal Morphology; Total Cells Counted 100
[2024-05-13] MEDS: OXYTOCIN PREMIX 30 UNIT/500 ML PLAST..BAG IV (08:37)
[2024-05-13 09:26] VITALS: BP 123/71
--- NOTE | 2024-05-13 09:56 | PM.OBHP.IH.1 ---
OB HPI Date/Time Date of admission: 05/13/24 Date Patient Seen: 05/13/24 Time Patient Seen: 08:15 History of Present Condition Chief complaint: Labor HERB Calculator Estimated Delivery Date Method Current WG Current Estimate 05/19/24 Conception 39w 1d Estimated Gestational Age (weeks): 39w1d : 4 Para: 2 Narrative: 34yo at 39w1d here for elective IOL. No vaginal bleeding, LOF, contractions prior to presentation. She is feeling her baby move regularly. Her was complicated by hyperemesis with significant weight loss initially, treated with IV infusions. The was conceived via IVF. care: good care, initiated at week # (9) and pounds weight gain (5lb loss) Dating criteria OB: other (IVF ) Ultrasounds: normal 1st trimester US and normal mid trimester US Obstetrical complications: hyperemesis Medical complications OB: none Indications Indication for induction OB: maternal discomfort Preadmission Labs Last OB Lab Results: Blood Type B Positive 05/13/24 07:30 Antibody Screen Negative 05/13/24 07:30 Hct 32.5 % (36-46) L 05/13/24 07:30 Hgb 10.6 g/dL (12.0-16.0) L 05/13/24 07:30 Hep Bs Antigen Negative s/c (NEGATIVE) 03/25/24 10:42 Hepatitis C Antibody Negative s/c (NEGATIVE) 03/25/24 10:42 Rubella Antibody 92.1 IU/mL (>15) 03/25/24 10:42 VZV IgG Antibody Reactive (Non Reactive) 03/25/24 10:42 Glucose 1 Hr 50 gm 107 mg/dL (76-139) 02/12/24 15:10 Group B Strep (PCR) Pos for grp b strep H 04/22/24 09:01 Genetic Screens: Cell-free DNA: Normal Prior (ies) Past Pregnancies Del. Date GA/Weeks Labor Lgth Wt Sex Route Outcome Anesthesia Place Delv Breastfeed Preg Comp Name 03/19/18 39 8 7 lb 11.8 oz Male vaginal live - full term epidural IH Dr Nieves 0 none Arun 07/03/19 5 spontaneous 02/21/21 39+ 14 9 lb 2 oz Male vaginal live - full term epidural IH N/A none Danial Delivery Date: 03/19/18 Last Updated by: Raquel Pinto R.N. Induction @ 39 wks, patient request. Apgars 9/9. Second degree Tear with Repair, healed well. Delivery Date: 07/03/19 Last Updated by: Raquel Pinto R.N. D&C to complete SAB @ . Evaluation Evaluation Baseline heart rate: 135 Variability: Moderate (11-25) monitor accelerations: Present Monitor Decelerations: Absent Dilation (cm): 4 Effacement (%): 50 Dilation: 3-4 cm Effacement: 40-50% station: -2 Position of cervix: mid Consistency: soft Duffy score: 7 PFSH Medical History (Updated 05/07/24 @ 10:46 by Lynsey Wade MD) Vaginal delivery depression Surgical History Anesthesia Surgical procedure planned History of third molar tooth extraction (~2010) Family History Father Age: 69 Hypertension High cholesterol Mother Age: 61 Hypertension Cancer of kidney Fibromyalgia Brother Rhabdomyosarcoma of heart Grandmother Family history unknown Grandfather Family history unknown Grandmother Family history unknown Grandfather Myocardial infarction Social History marital status: number of children: 2 household members: spouse and children lives independently: Yes caregiver/support person: Yes [facility] pets and animals: No education level: college occupational status: employed (pharmacy technician assistant in retail pharmacy) current occupational exposures/hazards: No special vanessa needs: No travel history: over 6 months ago seatbelt use: always helmet use: Yes water heater temp set < 120 deg: Yes working smoke detector in home: Yes fire extinguisher in home: Yes carbon monox detector in home: Yes firearms in home: No do you feel safe at home: Yes Smoking Status: Never smoker second hand exposure: No alcohol intake: former (occasionally when not ) substance use type: does not use during the past year weight has: remained stable well-balanced diet: rarely or never daily servings fruits/ve-1 (a salad maybe twice a week) caffeine: Yes (Occasional black tea) Type(s) of exercise: none frequency: 1-2 times per week Meds Home Medications and Allergies Home Medications Medication Instructions Recorded Confirmed Type triamcinolone acetonide 0.1 % See Rx Instructions .Route 12/30/21 05/07/24 Rx topical cream .COMPLEX #80 grams vitamin-ferrous sulfate tab PO 09/25/23 05/07/24 History 27 mg iron-folic acid 0.8 mg tablet promethazine 25 mg tablet 25 mg PO TID PRN nausea and 02/12/24 05/07/24 Rx vomiting #30 tabs docusate sodium [Dulcolax Stool 1 tab PO .HS 04/29/24 05/07/24 History Softener (dss)] ferrous sulfate [Iron (ferrous 1 tab PO .QD 04/29/24 05/07/24 History sulfate)] Allergies Allergy/AdvReac Type Severity Reaction Status Date / Time No Known Drug Allergies Allergy Verified 05/13/24 09:30 OB Exam Resp Effort & Inspection: normal respiratory effort Auscultation: clear to auscultation bilaterally Cardio Rate: regular rate Rhythm: regular rhythm Heart Sounds: S1 normal, S2 normal and no murmurs GI Inspection: non-distended Palpation: Yes soft and No tender Presentation: vertex Objective Labs 05/13/24 07:30 Labs: Laboratory Results - last 24 hr 05/13/24 07:30 WBC 11.6 H RBC 3.94 L Hgb 10.6 L Hct 32.5 L MCV 82.6 MCH 26.9 MCHC 32.5 RDW 16.9 H Plt Count 173 Neut % (Auto) Not Reportable Lymph % (Auto) Not Reportable [place] % (Auto) Not Reportable Eos % (Auto) Not Reportable Baso % (Auto) Not Reportable Lymph # (Auto) Not Reportable [place] # (Auto) Not Reportable Baso # (Auto) Not Reportable Total Counted 100 Seg Neutrophils % 74.0 H Lymphocytes % (Manual) 19.0 L Monocytes % (Manual) 3.0 Eosinophils % (Manual) 2.0 Metamyelocytes % 1.0 H Myelocytes % 1.0 H Neutrophils # (Manual) 8584 H RBC Morphology Normal morphology Assessment and Plan Assessment and Plan Assessment and Plan narrative: 34yo at 39w1d here for elective IOL. complicated by hyperemesis. GBS positive, Rh positive. Duffy score 7. - Start pitocin, titrate as tolerated - Amoxicillin for GBS prophylaxis. Plan to AROM once adequate. - FHT reassuring - Epidural for pain control when desired Time-Based Coding :: [TOTAL MINUTES] spent with patient and on the chart (including review of chart, obtaining history, exam, reviewing outside data, placing orders, documenting exam and treatment plan, and counseling patient) on [DATE].
--- NOTE | 2024-05-13 10:29 | P.PCN_ITS ---
Regional Block Pre-procedure Procedure: Continuous Lumbar Epidural for L&D Attending OB provider: Lynsey Wade PMH/ROS narrative: term labor, no medical complications, OB complicated by hyperemesis with . Previous . ASA Class: II Labs: Hct 32.5 % (36-46) L 05/13/24 07:30 Plt Count 173 X10^3/uL (150-400) 05/13/24 07:30 Medications: Current Medications Generic Name Dose Route Start Last Admin Trade Name Freq PRN Reason Stop Dose Admin Calcium Carbonate 1,000 mg 05/13/24 07:47 Calcium Carbonate 500 Mg Tab PO Q2HR PRN Dyspepsia Carboprost Tromethamine 250 mcg 05/13/24 07:47 Carboprost 250 Mcg/Ml Ampul IM Q90M PRN Bleeding Diphenhydramine HCl 25 mg 05/13/24 10:28 Diphenhydramine 50 Mg/Ml Vial IV Q10M PRN Pruritis Fentanyl 50 mcg 05/13/24 07:47 Fentanyl 100 Mcg/2 Ml Inj IV Q1H PRN Pain, Moderate (4-6) Lactated Ringer's 1,000 mls @ 100 mls/hr 05/13/24 08:00 05/13/24 08:26 Lactated Ringers IV 05/13/24 17:59 100 mls/hr CONT KELLY Administration Oxytocin/Lactated Ringer's 30 unit in 500 mls @ 200 mls/hr 05/13/24 07:47 Oxytocin Premix IV CONT PRN Bleeding Protocol Tranexamic Acid 1,000 mg/ 100 mls @ 600 mls/hr 05/13/24 07:47 Sodium Chloride IV NOW PRN Bleeding Oxytocin/Lactated Ringer's 30 unit in 500 mls @ 2 mls/hr 05/13/24 08:00 05/13/24 08:37 Oxytocin Premix IV 2 milliunit/min TITRATE KELLY 2 mls/hr Administration Protocol 2 MILLIUNIT/MIN Ampicillin Sodium 1,000 mg/ 100 mls @ 200 mls/hr 05/13/24 12:00 Sodium Chloride IV Q4H KELLY FENT 2MCG/ML BUPIV 0.125% EPI 200 mcg in 100 mls @ 6 mls/hr 05/13/24 10:30 Fentanyl/Bupiv/Ns 2mcg/Ml - 0.125% EPIDURAL CONT KELLY Lidocaine HCl 20 ml 05/13/24 07:47 Lidocaine 1% 20 Ml INJ INTRA-OP PRN Post Delivery Methylergonovine Maleate 0.2 mg 05/13/24 07:47 Methylergonovine 0.2 Mg/Ml Vial IM NOW PRN Bleeding Methylergonovine Maleate 0.2 mg 05/13/24 07:47 Methylergonovine 0.2 Mg Tablet PO Q6HR PRN Heavy Bleeding Mineral Oil 30 ml 05/13/24 07:47 Mineral Oil 30 Ml Udc TOP PRN PRN Version Misoprostol 400 mcg 05/13/24 07:47 Misoprostol 200 Mcg Tablet SL NOW PRN Bleeding Misoprostol 800 mcg 05/13/24 07:47 Misoprostol 200 Mcg Tablet MD NOW PRN Bleeding Nalbuphine HCl 2.5 mg 05/13/24 10:28 Nalbuphine 20 Mg/Ml Ampul IV Q10M PRN Pruritis Naloxone HCl 0.2 mg 05/13/24 07:47 Naloxone 0.4 Mg/Ml Vial IV Q2MIN PRN Opiate Reversal Ondansetron HCl 4 mg 05/13/24 07:47 Ondansetron 4 Mg/2 Ml Inj IV Q4HR PRN Nausea And Vomiting Oxytocin 10 unit 05/13/24 07:47 Oxytocin 10 Unit/Ml Vial IM NOW PRN Bleeding Allergies: Allergies Allergy/AdvReac Type Severity Reaction Status Date / Time No Known Drug Allergies Allergy Verified 05/13/24 09:30 Procedure Insertion date: 05/13/24 Insertion time: 10:44 Prep/Local: betadine x3 and 1% lidocaine Interspace: L34 Patient position: sitting Needle: 18 gauge Isidra (CSE: 27g Pencan through Hustead, clear CSF, 1mL 0.25% bupiv MPF) Loss of resistance with: saline RC at (cm): 4 Catheter placed at SKIN (cm): 10 Catheter in SPACE (cm): 6 Insertion: No CSF, No Blood, No Paresthesia with insertion, No Paresthesia with injection and No Test dose reaction Initial Medications TEST DOSE time: 10:45 TEST DOSE: 1.5% lidocaine with epinephrine 1:200k (mL): 3 Infusion INFUSION: 0.125% bupivacaine and with fentanyl 2 mcg/mL Initial rate (mL/hr): 8 Subsequent interventions: rapid progression from 5cm to complete. 5mL 2% chlorop rocaine @ 1450 1620 7mL 2% chloroprocaine for lac repair Post-procedure Anesthesia date START: 05/13/24 Anesthesia time START: 10:30 Anesthesia date END: 05/13/24 Anesthesia time END: 16:56 Post-procedure Anesthesia Assessment: No CV function: HR/BP stable, No Resp function: RR/sat/airway adequate, No Post-op hydration adequate, No Pain control adequate, No Nausea & vomiting absent, No Temperature > 36 C, No Mental status appropriate and No Anesthesia complications
[2024-05-13] MEDS: AMPICILLIN 1,000 MG in SODIUM CHLORIDE 0.9% 100 ML 200 MG IV (12:04)
--- NOTE | 2024-05-13 13:28 | PM.OBPNLAB ---
Date/Time Date Patient Seen: 05/13/24 Time Patient Seen: 13:00 Pain Control Pain control: epidural Pelvic Exam Dilation (cm): 5 Effacement (%): 60 station: -2 Amniotic membrane status: Ruptured Comments: After informed consent AROM performed with clear fluid present. Contractions Monitor mode: External Pitocin rate (mU/min): 16 Contraction frequency (min): 3 Contraction duration (min): 1 Status status: Category l Heart Rate Baseline: 135 Monitor Accelerations: Present Monitor Decelerations: Absent Monitor Variability: Moderate Assessment and Plan Comments: 34yo at 39w1d here for elective IOL. GBS positive, Rh positive. AROM performed with clear fluid present. - FHT reassuring - Epidural in place for pain control - Ampicillin for GBS prophylaxis ongoing, adequate - Continue pitocin, titrate as tolerated
[2024-05-13] MEDS: TRANEXAMIC ACID 1,000 MG in SODIUM CHLORIDE 0.9% 100 ML 600 MG IV (15:58)
[2024-05-13] MEDS: fentaNYL 100 MCG/2 ML INJ 50 MCG IV (16:07)
[2024-05-13] MEDS: LIDOCAINE 1% 20 ML INJ (16:07)
[2024-05-13] MEDS: METHYLERGONOVINE 0.2 MG/ML VIAL IM (16:16)
[2024-05-13] MEDS: KETOROLAC 30 MG/ML VIAL IM (16:35)
[2024-05-13] MEDS: OXYTOCIN PREMIX 30 UNIT/500 ML PLAST..BAG 334 UNIT IV (16:45)
--- NOTE | 2024-05-13 17:44 | PM.OBPRVD ---
Labor & Delivery Delivery date: 05/13/24 Induction method: per pitocin protocol Delivery augmentation: rupture of membranes Delivery monitor: external FHT and external uterine Route of delivery: Episiotomy description: None L&D Laceration Description: Perineal - 2nd Degree Quantitative Blood Loss: 1,200 Anesthesia Type: Epidural Complications: hemorrhage Narrative: PROCEDURE: at 39w1d presented for elective IOL and was admitted to Labor and Delivery. She was initiated on pitocin. The patient progressed through the 1st stage over 21 minutes. ROM occured at 13:03 with clear fluid, after adequate GBS prophylaxis with ampicillin. Pain was controlled with an epidural. The patient progressed through the 2nd stage over 40 minutes and delivered a viable female with APGARs 7/9 at 15:39 via . Nuchal cord x1 was reduced at the perineum. The cord was cut and clamped after it stopped pulsating. The placenta delivered with gentle cord traction, and appeared complete. The perineum and vagina were inspected with 2nd degree perineal laceration repaired with 2-O Vicryl. There was brisk vaginal bleeding during and after delivery of the placenta. This was controlled with pitocin, TXA, methergine, and bimanual sweep of the uterus for removal of clots. Needle and sponge counts were correct.? The vagina was inspected and no items were left in situ. Julia was doing well with Flakita, her . PREPROCEDURE DIAGNOSIS: Intrauterine at 39w1d GBS positive RH positive IVF POSTPROCEDURE DIAGNOSIS: Intrauterine at 39w1d, delivered Same as preprocedure hemorrhage Baby 1: Infant gender: Female Presentation: vertex Position: Left Occiput Anterior Placenta delivery description: Spontaneous Cord Vessel Description: 3 Vessels and Nuchal Cord score (1 min): 7 score (5 min): 9 weight: 8 lb 7.135 oz
[2024-05-13] MEDS: ONDANSETRON 4 MG/2 ML INJ IV (17:55)
[2024-05-13] MEDS: WITCH HAZEL/GLYCERIN PADS 1 EACH TOP (18:37)
[2024-05-13] MEDS: OXYCODONE IR 5 MG TABLET PO (18:37)
[2024-05-13] MEDS: ACETAMINOPHEN 325 MG TABLET 650 MG PO (18:37)
[2024-05-13] MEDS: DERMOPLAST SPRAY 20% 60 ML 1 SPRAY TOP (18:38)
[2024-05-13] MEDS: LANOLIN OINT 7 GM 1 APPLIC TOP (18:38)
[2024-05-13] MEDS: polyethylene glycoL 3350 17 GM POWD.PACK PO (20:54)
[2024-05-13] MEDS: IBUPROFEN 600 MG TABLET PO (22:19)
[2024-05-14] MEDS: ACETAMINOPHEN 325 MG TABLET 650 MG PO ×3 (03:20→15:13)
[2024-05-14] MEDS: OXYCODONE IR 5 MG TABLET PO ×2 (03:20→14:21)
[2024-05-14] MEDS: IBUPROFEN 600 MG TABLET PO ×2 (05:25→11:31)
[2024-05-14 06:45] LABS: Add Manual Diff / Slide Review NO; Basophils Absolute Auto 100 /uL (0-100); Basophils Percent Auto 0.5 % (0-2); Eosinophils Absolute Auto 100 /uL (0-450); Eosinophils Percent Auto 0.5 % (2-4); Hematocrit 25.2 % (36-46); Hemoglobin 8.3 g/dL (12.0-16.0); Lymphocytes Absolute Auto 1700 /uL (1100-4500); Lymphocytes Percent Auto 10.5 % (25-40); Mean Corpuscular HGB Conc 32.8 % (30-36); Mean Corpuscular Hemoglobin 27.2 PG (26-34); Mean Corpuscular Volume 82.8 fL (80-100); Monocytes Absolute Auto 1000 /uL (0-900); Monocytes Percent Auto 6.1 % (3-14); Neutrophils Absolute Auto 13700 /uL (1500-7000); Neutrophils Percent Auto 82.4 % (50-75); Platelet Count 148 X10^3/uL (150-400); Red Blood Cell Count 3.04 X10^6/uL (4.0-5.2); Red Cell Distribution Width 16.8 % (11.6-14.8); White Blood Cell Count 16.6 X10^3/uL (4.5-11.0)
[2024-05-14] MEDS: PRENATAL VIT,CALC/IRON/FOLIC 1 TABLET 1 TAB PO (08:49)
[2024-05-14] MEDS: FERROUS SULFATE 325 MG TABLET PO (08:49)
[2024-05-14] MEDS: polyethylene glycoL 3350 17 GM POWD.PACK PO (08:49)
[2024-05-14] MEDS: DOCUSATE 100 MG CAPSULE PO (08:49)
--- NOTE | 2024-05-14 11:44 | P.DS_ITS ---
Discharge Providers Provider Date of admission: 05/13/24 07:02 Discharge Date: 05/14/24 Primary care physician: Lynsey Wade MD Discharge provider: Janet Agee MD Summary Hospital Course Date Patient Seen: 05/14/24 Time Patient Seen: 07:45 Diagnoses: Term vaginal delivery Hospital Course: This is a 34 yo G4 now P3 who was admitted for elective IOL at 39w1d. conceived via IVF. GBS positive with appropriate intrapartum prophylaxis. Recieved pitocin and AROM for augmentation. Epidural for pain control. Delivery complicated by PPH controlled by TXA, methergine, and bimanual massage. Second degree laceration. recovering well. Formula feeding. Pain controlled with oxycodone, tylenol and ibuprofen. Peripartum Data Infant Delivery Method: Natural Vaginal Laceration Description: Periurethral - 2nd Degree complications: perineal laceration Status at Discharge Cognitive/behavioral status at discharge: oriented Functional status at discharge: independent ambulation Overall status at discharge: patient is back to baseline Time Spent with Patient Time attestation: Total time spent providing and/or coordinating discharge services: Time spent: Greater than 30 minutes Objective Labs 05/14/24 06:32 Labs: Laboratory Results - last 24 hr 05/14/24 06:32 WBC 16.6 H RBC 3.04 L Hgb 8.3 L Hct 25.2 L MCV 82.8 MCH 27.2 MCHC 32.8 RDW 16.8 H Plt Count 148 L Neut % (Auto) 82.4 H Lymph % (Auto) 10.5 L [place] % (Auto) 6.1 Eos % (Auto) 0.5 L Baso % (Auto) 0.5 Neut # (Auto) 11888 H Lymph # (Auto) 1700 [place] # (Auto) 1000 H Eos # (Auto) 100 Baso # (Auto) 100 Exam Narrative Exam Narrative: NAD. Comfortable in bed holding baby. Discharge Plan Discharge Plan Patient Disposition: Home Discharge orders & Medications Prescriptions: New acetaminophen 325 mg Tablet 650 mg PO Q6HR PRN (Reason: Pain, Mild (1-3)) Qty: 60 0RF ferrous sulfate 325 mg (65 mg iron) Tablet 325 mg PO DAILY Qty: 30 0RF docusate sodium 100 mg Capsule 100 mg PO DAILY Qty: 60 0RF ibuprofen 600 mg Tablet 600 mg PO Q6HR PRN (Reason: Pain, Mild (1-3)) Qty: 60 0RF oxycodone 5 mg Tablet 5 mg PO Q4HR PRN (Reason: Pain, Moderate (4-6)) Qty: 15 0RF Dermoplast (with menthol) 20-0.5 % Aerosol 1 spray topical Q1HR PRN (Reason: perineal pain) Qty: 56 0RF Purelan Cream 1 applic topical PRN PRN (Reason: Tenderness) Qty: 7 0RF Continued ferrous sulfate [Iron (ferrous sulfate)] 1 tab PO .QD docusate sodium [Dulcolax Stool Softener (dss)] 1 tab PO .HS triamcinolone acetonide 0.1 % cream See Rx Instructions .ROUTE .COMPLEX Qty: 80 0RF Dose Instruction: APPLY EXTERNALLY TO THE AFFECTED AREA THREE TIMES DAILY Rx Instructions: APPLY EXTERNALLY TO THE AFFECTED AREA THREE TIMES DAILY promethazine 25 mg tablet 25 mg PO TID PRN (Reason: nausea and vomiting) Qty: 30 2RF vit-ferrous sulfat-FA 27 mg iron- 0.8 mg tablet PO Follow up/Referrals: Lynsey Wade MD [Primary Care Provider] - Visit Report/Discharge Packet Stand Alone Forms: Patient Portal/API, Stroke Signs & Symptoms Discharge Data Primary Care Provider: Lynsey Wade
[2024-05-14 16:16] VITALS: BP 103/68; PULSE 81; RESP 14; TEMP 36.8
== END 2024-05-14 16:48 | disposition home or self-care (01) | DRG 807 ==
PROVIDERS: Admitting Provider Family Medicine; PCP Family Medicine; Referring Provider Family Medicine; Visit Provider Family Medicine
DX: O99.824 Streptococcus B carrier state complicating childbirth (principal); Z37.0 Single live birth; Z3A.39 39 weeks gestation of pregnancy; O70.1 Second degree perineal laceration during delivery; O72.0 Third-stage hemorrhage
CPT/HCPCS: 36415; 59050; 85007; 85025; 86850; 86900; 86901; G0379; J0290; J1885; J2210; J2405; J2590; J3010

== ENCOUNTER → 2024-09-11 09:03 | Outpatient (CLI) | payer OTHER, SELFPAY ==
[2024-09-11 10:33] LABS: Influenza A - CEPHEID Flu A NEGATIVE (NEGATIVE); Influenza B - CEPHEID Flu B NEGATIVE (NEGATIVE); Respiratory Syncytial Virus Negative (Negative)
[2024-09-11 10:34] LABS: COVID-19 CEPHEID 4-PLEX PCR Negative (Negative)
== END ==
PROVIDERS: PCP Family Medicine; Visit Provider Nurse Practitioner Family
DX: R05.9 Cough, unspecified (principal)
CPT/HCPCS: 0241U; 87070

== ENCOUNTER → 2024-09-11 09:27 | Outpatient (CLI) | payer OTHER, SELFPAY ==
--- NOTE | 2024-09-11 09:28 | DI.RAD.S_ITS ---
PROCEDURE: XR CHEST 2V INDICATIONS: Cough TECHNIQUE: 2 views of the chest were acquired. COMPARISON: [facility], CR, XR CHEST 1V, 08/09/2023, 8:34. FINDINGS: Surgical changes and devices: None. Lungs and pleura: Lungs are clear. No pleural effusions or pneumothorax. Mediastinum: Mediastinal contours are normal. Heart size is normal. Bones and chest wall: No suspicious bony abnormalities. Soft tissues appear unremarkable. IMPRESSION: No acute cardiopulmonary abnormality is seen. Dictated by: Shyam Mercer M.D. on 09/11/2024 at 18:18 Approved by: Shyam Mercer M.D. on 09/11/2024 at 18:19
== END ==
PROVIDERS: PCP Family Medicine; Referring Provider Nurse Practitioner Family; Visit Provider Nurse Practitioner Family
DX: R05.9 Cough, unspecified (principal)
CPT/HCPCS: 0241U; 71046; 87070